=== PATIENT | female | born 1975 | race Caucasian/White ===

== ENCOUNTER 2018-04-12 11:30 | Observation (INO) | payer OTHER ==
[2018-04-12] MEDS ORDERED: IPRATROPIUM-ALBUTEROL 3 ML NEB INHALATION STA (11:38)
--- NOTE | 2018-04-12 12:18 | ED ---
General Adult HPI - General Chief complaint: Shortness of Breath Stated complaint: SOB Time Seen by Provider: 04/12/18 11:40 Source: patient, RN notes reviewed, old records reviewed Mode of arrival: wheelchair Limitations: no limitations - History of Present Illness Initial comments: This is a 43-year-old female the ER for evaluation of shortness of breath. Exertional shortness of breath which patient always does suffer from. Patient states she takes no medication, does have history of high blood pressure takes no blood pressure medication takes and has not seen a doctor. Patient has no recent travel history no sick contacts. Denies fever cough or congestion currently. - Related Data Home Medications Medication Instructions Recorded Confirmed Ibuprofen [Motrin] 1,600 mg PO Q8HR PRN 04/12/18 04/12/18 guaiFENesin [Mucinex] 1,200 mg PO Q12H PRN 04/12/18 04/12/18 Previous Rx's Medication Instructions Recorded Albuterol Inhaler [Ventolin Hfa 1 - 2 puff INHALATION Q6HR PRN #1 04/14/18 Inhaler] inhaler Budesonide-Formot 160-4.5 Mcg 2 puff INHALATION BID #1 inhaler 04/14/18 [Symbicort 160-4.5 Mcg Inhaler] Lisinopril-Hctz 20-25 mg 1 each PO DAILY #30 tab 04/14/18 [Zestoretic 20-25] Nicotine 21Mg/24Hr Patch [Habitrol] 1 each TRANSDERM DAILY #7 patch 04/14/18 Tiotropium [place] [Spiriva] 1 cap INHALATION DAILY #1 device 04/14/18 amLODIPine [Norvasc] 5 mg PO DAILY #30 tab 04/14/18 predniSONE 10 mg PO DAILY #30 tab 04/14/18 Allergies Allergy/AdvReac Type Severity Reaction Status Date / Time amoxicillin AdvReac Itching Verified 04/12/18 12:20 hydrocodone bitartrate AdvReac Itching Verified 04/12/18 12:20 [From Vicodin] Review of Systems ROS Statement: Those systems with pertinent positive or pertinent negative responses have been documented in the HPI. ROS Other: All systems not noted in ROS Statement are negative. Past Medical History Past Medical History: Fibromyalgia, Hypertension History of Any Multi-Drug Resistant Organisms: None Reported Past Surgical History: Orthopedic Surgery Past Psychological History: Depression Smoking Status: Current every day smoker Past Alcohol Use History: None Reported Past Drug Use History: None Reported - Past Family History Father History Unknown: Yes Mother Family Medical History: Cancer, Diabetes Mellitus Additional Family Medical History / Comment(s): Mother from breast cancer that metastasized to her brain at the age of 73 yrs. General Exam Limitations: no limitations General appearance: alert, anxious, obese Head exam: Present: atraumatic, normocephalic, normal inspection Eye exam: Present: normal appearance, PERRL, EOMI. Absent: scleral icterus, conjunctival injection, periorbital swelling ENT exam: Present: normal exam, mucous membranes moist Neck exam: Present: normal inspection. Absent: tenderness, meningismus, lymphadenopathy Respiratory exam: Present: normal lung sounds bilaterally. Absent: respiratory distress, wheezes, rales, rhonchi, stridor Cardiovascular Exam: Present: regular rate, normal rhythm, normal heart sounds. Absent: systolic murmur, diastolic murmur, rubs, gallop, clicks GI/Abdominal exam: Present: soft, normal bowel sounds. Absent: distended, tenderness, guarding, rebound, rigid Extremities exam: Present: normal inspection, full ROM, normal capillary refill. Absent: tenderness, pedal edema, joint swelling, calf tenderness Back exam: Present: normal inspection Neurological exam: Present: alert, oriented X3, CN II-XII intact Psychiatric exam: Present: normal affect, normal mood Skin exam: Present: warm, dry, intact, normal color. Absent: rash Course Vital Signs 04/12/18 04/12/18 04/12/18 11:32 12:01 12:10 Temperature 98.1 F Pulse Rate 112 H 102 H 100 Respiratory 26 H Rate Blood Pressure 210/97 O2 Sat by Pulse 93 L Oximetry 04/12/18 04/12/18 04/12/18 12:38 12:50 13:13 Temperature Pulse Rate 102 H 102 H 98 Respiratory 20 20 20 Rate Blood Pressure 207/99 210/95 207/97 O2 Sat by Pulse 94 L 91 L 98 Oximetry 04/12/18 04/12/18 04/12/18 13:24 13:52 14:35 Temperature Pulse Rate 103 H 97 86 Respiratory 20 18 18 Rate Blood Pressure 201/87 191/84 193/88 O2 Sat by Pulse 91 L 92 L 98 Oximetry 04/12/18 17:04 Temperature Pulse Rate 88 Respiratory 20 Rate Blood Pressure 193/102 O2 Sat by Pulse 96 Oximetry EKG Findings - EKG Comments: EKG Findings:: EKG shows sinus tachycardia rate of 107, VA 164, QRS 90, QTc 472 Medical Decision Making - Medical Decision Making 43 female the ER with shortness of breath, positive CHF significant hypertension with hypertensive urgency. Patient be admitted for evaluation, blood pressure control and diuresis - Lab Data Result diagrams: 04/13/18 06:28 04/13/18 19:00 Lab Results 04/12/18 04/12/18 04/12/18 Range/Units 12:10 12:10 12:10 WBC 9.1 (3.8-10.6) k/uL RBC 4.93 (3.80-5.40) m/uL Hgb 12.6 (11.4-16.0) gm/dL Hct 40.7 (34.0-46.0) % MCV 82.6 (80.0-100.0) fL MCH 25.5 (25.0-35.0) pg MCHC 30.9 L (31.0-37.0) g/dL RDW 17.7 H (11.5-15.5) % Plt Count 314 (150-450) k/uL Neutrophils % 76 % Lymphocytes % 16 % Monocytes % 3 % Eosinophils % 4 % Basophils % 0 % Neutrophils # 6.9 (1.3-7.7) k/uL Lymphocytes # 1.5 (1.0-4.8) k/uL Monocytes # 0.3 (0-1.0) k/uL Eosinophils # 0.3 (0-0.7) k/uL Basophils # 0.0 (0-0.2) k/uL Hypochromasia Moderate Anisocytosis Slight PT (9.0-12.0) sec INR (<1.2) APTT (22.0-30.0) sec Sodium 142 (137-145) mmol/L Potassium 4.1 (3.5-5.1) mmol/L Chloride 110 H (98-107) mmol/L Carbon Dioxide 23 (22-30) mmol/L Anion Gap 9 mmol/L BUN 15 (7-17) mg/dL Creatinine 0.58 (0.52-1.04) mg/dL Est GFR (CKD-EPI)AfAm >90 (>60 ml/min/1.73 sqM) Est GFR (CKD-EPI)NonAf >90 (>60 ml/min/1.73 sqM) Glucose 160 H (74-99) mg/dL Calcium 8.8 (8.4-10.2) mg/dL Magnesium 2.1 (1.6-2.3) mg/dL Total Bilirubin 0.4 (0.2-1.3) mg/dL AST 32 (14-36) U/L ALT 21 (9-52) U/L Alkaline Phosphatase 105 (38-126) U/L Total Creatine Kinase 93 (30-135) U/L CK-MB (CK-2) 0.9 (0.0-2.4) ng/mL CK-MB (CK-2) Rel Index 1.0 Troponin I 0.020 (0.000-0.034) ng/mL NT-Pro-B Natriuret Pep pg/mL Total Protein 7.5 (6.3-8.2) g/dL Albumin 3.5 (3.5-5.0) g/dL 04/12/18 04/12/18 Range/Units 12:10 12:10 WBC (3.8-10.6) k/uL RBC (3.80-5.40) m/uL Hgb (11.4-16.0) gm/dL Hct (34.0-46.0) % MCV (80.0-100.0) fL MCH (25.0-35.0) pg MCHC (31.0-37.0) g/dL RDW (11.5-15.5) % Plt Count (150-450) k/uL Neutrophils % % Lymphocytes % % Monocytes % % Eosinophils % % Basophils % % Neutrophils # (1.3-7.7) k/uL Lymphocytes # (1.0-4.8) k/uL Monocytes # (0-1.0) k/uL Eosinophils # (0-0.7) k/uL Basophils # (0-0.2) k/uL Hypochromasia Anisocytosis PT 10.2 (9.0-12.0) sec INR 1.0 (<1.2) APTT 23.7 (22.0-30.0) sec Sodium (137-145) mmol/L Potassium (3.5-5.1) mmol/L Chloride (98-107) mmol/L Carbon Dioxide (22-30) mmol/L Anion Gap mmol/L BUN (7-17) mg/dL Creatinine (0.52-1.04) mg/dL Est GFR (CKD-EPI)AfAm (>60 ml/min/1.73 sqM) Est GFR (CKD-EPI)NonAf (>60 ml/min/1.73 sqM) Glucose (74-99) mg/dL Calcium (8.4-10.2) mg/dL Magnesium (1.6-2.3) mg/dL Total Bilirubin (0.2-1.3) mg/dL AST (14-36) U/L ALT (9-52) U/L Alkaline Phosphatase (38-126) U/L Total Creatine Kinase (30-135) U/L CK-MB (CK-2) (0.0-2.4) ng/mL CK-MB (CK-2) Rel Index Troponin I (0.000-0.034) ng/mL NT-Pro-B Natriuret Pep 348 pg/mL Total Protein (6.3-8.2) g/dL Albumin (3.5-5.0) g/dL - Radiology Data Radiology results: report reviewed (Chest x-ray is positive for CHF), image reviewed Disposition Clinical Impression: Hypertension, Congestive heart failure, Acute pulmonary edema, Hypertensive emergency Disposition: ADMITTED IP TO THIS HOSP Condition: Stable Is patient prescribed a controlled substance at d/c from ED?: No
--- NOTE | 2018-04-12 12:38 | XR ---
EXAMINATION TYPE: XR chest 1V portable DATE OF EXAM: 04/12/2018 COMPARISON: NONE HISTORY: Shortness of breath TECHNIQUE: Single frontal view of the chest is obtained. FINDINGS: There is a diffuse interstitial pattern. No pneumothorax or pleural effusion. No consolida tion. Heart size within normal limits. IMPRESSION: Diffuse interstitial pattern correlate for pneumonitis or venous congestion.
[2018-04-12] MEDS: ENALAPRILAT 1.25 MG/ML 1 ML VIAL IVP STA ×2 (12:39→13:24)
[2018-04-12 12:49] LABS: Anisocytosis Slight; Basophils % (A) 0 %; Eosinophils # (A) 0.3 k/uL (0-0.7); Eosinophils % (A) 4 %; HCT 40.7 % (34.0-46.0); HGB 12.6 gm/dL (11.4-16.0); Hypochromasia Moderate; Lymphocytes # (A) 1.5 k/uL (1.0-4.8); Lymphocytes % (A) 16 %; MCH 25.5 pg (25.0-35.0); MCHC 30.9 g/dL (31.0-37.0); MCV 82.6 fL (80.0-100.0); Mean Platelet Volume 6.4; Monocytes # (A) 0.3 k/uL (0-1.0); Monocytes % (A) 3 %; Neutrophils # (A) 6.9 k/uL (1.3-7.7); Neutrophils % (A) 76 %; Platelet Count 314 k/uL (150-450); RBC 4.93 m/uL (3.80-5.40); RDW 17.7 % (11.5-15.5); WBC 9.1 k/uL (3.8-10.6)
[2018-04-12 12:59] LABS: ALT 21 U/L (9-52); AST 32 U/L (14-36); Albumin 3.5 g/dL (3.5-5.0); Alkaline Phosphatase 105 U/L (38-126); Anion Gap 9 mmol/L; Blood Urea Nitrogen 15 mg/dL (7-17); Calcium 8.8 mg/dL (8.4-10.2); Carbon Dioxide 23 mmol/L (22-30); Chloride 110 mmol/L (98-107); Glucose 160 mg/dL (74-99); Magnesium 2.1 mg/dL (1.6-2.3); Potassium 4.1 mmol/L (3.5-5.1); Sodium 142 mmol/L (137-145); Total Bilirubin 0.4 mg/dL (0.2-1.3); Total Protein 7.5 g/dL (6.3-8.2)
[2018-04-12 13:05] LABS: Partial Thromboplastin Time 23.7 sec (22.0-30.0); Prothrombin Time 10.2 sec (9.0-12.0)
[2018-04-12 13:23] LABS: Creatine Kinase MB 0.9 ng/mL (0.0-2.4); Troponin I 0.02 ng/mL (0.000-0.034)
[2018-04-12] MEDS: IPRATROPIUM-ALBUTEROL 3 ML NEB INHALATION SCH ×2 (17:22→20:25)
[2018-04-12] MEDS: FUROSEMIDE 10 MG/ML 4 ML VIAL IV SCH ×2 (17:48→22:06)
[2018-04-12] MEDS: ENALAPRILAT 1.25 MG/ML 1 ML VIAL IVP SCH (18:42)
--- NOTE | 2018-04-12 18:49 | ECHOF ---
Referral Reason:Heart Failure MEASUREMENTS -------- HEIGHT: 170.2 cm WEIGHT: 163.3 kg BP: 193/88 RVIDd: 3.7 cm (< 3.3) IVSd: 1.6 cm (0.6 - 1.1) LVIDd: 5.5 cm (3.9 - 5.3) LVPWd: 1.4 cm (0.6 - 1.1) IVSs: 1.8 cm LVIDs: 3.6 cm LVPWs: 1.7 cm LA Diam: 4.5 cm (2.7 - 3.8) Ao Diam: 3.1 cm (2.0 - 3.7) AV Cusp: 1.1 cm (1.5 - 2.6) LA Diam: 4.2 cm (2.7 - 3.8) RAP: 5.00 mmHg RVSP: 13.91 mmHg FINDINGS -------- Sinus rhythm. This was a technically difficult study with suboptimal views. The left ventricular size is normal. There is moderate concentric left ventricular hypertrophy. O verall left ventricular systolic function is normal with, an EF between 55 - 60 %. The right ventricle is normal in size and function. The left atrium is mildly dilated. The right atrium was not well visualized. 5 ml of Lumason was utilized for enhancement of images. The aortic valve was not well visualized. The mitral valve was not well visualized. The tricuspid valve was not well visualized. Trace tricuspid regurgitation present. Right ventric ular systolic pressure is normal at < 35 mmHg. There is no evidence of pulmonary hypertension. The pulmonic valve was not well visualized. The aortic root size is normal. Normal inferior vena cava with normal inspiratory collapse consistent with estimated right atrial pre ssure of 5 mmHg. There is no pericardial effusion. CONCLUSIONS -------- 1. Sinus rhythm. 2. This was a technically difficult study with suboptimal views. 3. The left ventricular size is normal. 4. There is moderate concentric left ventricular hypertrophy. 5. Overall left ventricular systolic function is normal with, an EF between 55 - 60 %. 6. The left atrium is mildly dilated. 7. The right atrium was not well visualized. 8. 5 ml of Lumason was utilized for enhancement of images. 9. The aortic valve was not well visualized. 10. The mitral valve was not well visualized. 11. The tricuspid valve was not well visualized. 12. Trace tricuspid regurgitation present. 13. Right ventricular systolic pressure is normal at < 35 mmHg. 14. There is no evidence of pulmonary hypertension. 15. The pulmonic valve was not well visualized. 16. The aortic root size is normal. 17. There is no pericardial effusion. [employer] INSTRUCTOR: Rober Piedra RDCS
[2018-04-12] MEDS ORDERED: hydrALAZINE HCL 20 MG/ML 1 ML VIAL IVP PRN (19:26)
[2018-04-12] MEDS ORDERED: IPRATROPIUM-ALBUTEROL 3 ML NEB INHALATION PRN (20:41)
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
[2018-04-12] MEDS: predniSONE 20 MG TAB PO SCH (22:06)
[2018-04-12] MEDS: amLODIPine 10 MG TAB PO SCH (22:06)
[2018-04-13] MEDS: ENALAPRILAT 1.25 MG/ML 1 ML VIAL IVP SCH ×2 (00:07→06:01)
[2018-04-13] MEDS: ACETAMINOPHEN TAB 325 MG TAB PO PRN ×2 (06:53→20:56)
[2018-04-13] MEDS: IPRATROPIUM-ALBUTEROL 3 ML NEB INHALATION SCH ×4 (07:00→19:36)
[2018-04-13 07:17] LABS: Anisocytosis Slight; Basophils % (A) 0 %; Eosinophils # (A) 0.1 k/uL (0-0.7); Eosinophils % (A) 1 %; HGB 12.7 gm/dL (11.4-16.0); Hypochromasia Marked; Lymphocytes # (A) 1.6 k/uL (1.0-4.8); Lymphocytes % (A) 14 %; MCH 25.3 pg (25.0-35.0); MCHC 30.2 g/dL (31.0-37.0); MCV 83.9 fL (80.0-100.0); Mean Platelet Volume 6.7; Monocytes # (A) 0.3 k/uL (0-1.0); Monocytes % (A) 3 %; Neutrophils # (A) 9.9 k/uL (1.3-7.7); Neutrophils % (A) 82 %; Platelet Count 403 k/uL (150-450); RBC 5.01 m/uL (3.80-5.40); RDW 17.5 % (11.5-15.5)
[2018-04-13 07:28] LABS: Anion Gap 12 mmol/L; Blood Urea Nitrogen 15 mg/dL (7-17); Calcium 9.2 mg/dL (8.4-10.2); Carbon Dioxide 23 mmol/L (22-30); Chloride 107 mmol/L (98-107); Cholesterol 146 mg/dL (<200); Glucose 125 mg/dL (74-99); HDL Cholesterol 33 mg/dL (40-60); LDL Cholesterol,Calculated 104 mg/dL (0-99); Potassium 4.5 mmol/L (3.5-5.1); Sodium 142 mmol/L (137-145); Triglycerides 46 mg/dL (<150)
[2018-04-13] MEDS: FAMOTIDINE 20 MG TAB PO SCH ×2 (10:23→21:49)
[2018-04-13] MEDS: predniSONE 20 MG TAB PO SCH (10:23)
[2018-04-13] MEDS: ENOXAPARIN 40 MG/0.4 ML SYRINGE SQ SCH (10:23)
[2018-04-13] MEDS: amLODIPine 10 MG TAB PO SCH (10:23)
[2018-04-13] MEDS: FUROSEMIDE 10 MG/ML 4 ML VIAL IV SCH ×3 (10:24→23:58)
[2018-04-13 10:48] VITALS: BMI 56.0
[2018-04-13] MEDS: LISINOPRIL-HCTZ 20-25 MG 1 EACH TAB PO SCH (11:56)
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
[2018-04-14] MEDS: IPRATROPIUM-ALBUTEROL 3 ML NEB INHALATION SCH ×2 (06:54→11:13)
[2018-04-14] MEDS: FUROSEMIDE 10 MG/ML 4 ML VIAL IV SCH (08:40)
[2018-04-14] MEDS: ENOXAPARIN 40 MG/0.4 ML SYRINGE SQ SCH (08:40)
[2018-04-14] MEDS: predniSONE 20 MG TAB PO SCH (08:41)
[2018-04-14] MEDS: amLODIPine 10 MG TAB PO SCH (08:41)
[2018-04-14] MEDS: FAMOTIDINE 20 MG TAB PO SCH (08:41)
[2018-04-14] MEDS: LISINOPRIL-HCTZ 20-25 MG 1 EACH TAB PO SCH (08:41)
[2018-04-14 11:58] VITALS: BP 137/78; PULSE 96; RESP 18; TEMP 97.9
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
--- NOTE | 2018-04-14 13:37 | P.PN ---
Subjective Progress Note Date: 04/14/18 This is a 43-year-old female with known history of hypertension, not currently on any medications, history of osteoarthritis, fibromyalgia, obesity, nicotine dependence, who presented to the hospital with symptoms of shortness of breath with bilateral leg swelling. Denies any chest discomfort, no palpitations. Chest x-ray shows diffuse interstitial pattern, correlate for pneumonitis or venous congestion. An echocardiogram with Doppler study was performed which showed a normal left ventricular systolic function. Blood pressure on admission here 210/97, heart rate 108, 93% on room air, temperature 98.1. White blood cell count 9.1 on admission, 12.0 this morning. Platelet count 314 on arrival, 403 this afternoon. Sodium 142, potassium 4.5, BUN 15, creatinine 0.6. Troponin 0.02, 0.01, 0.02. BNP 348. Patient was initiated on IV Lasix in the emergency room, we will discontinue that today. She is on Norvasc 10 mg daily, and was started on Vasotec 1.25 IV which has been discontinued. Dr. Mauricio started the patient on Lisinopril hydrochlorothiazide 20/25 daily. Her blood pressure this morning is 154/88, heart rate in the 90s, 94% on room air. 04/14/2018 Patient seen and examined this morning, blood pressure significantly improved, 136/78 today with a heart rate of 90, 93% on room air Objective - Vital Signs Vital signs: Vital Signs Temp 97.9 F 04/14/18 11:57 Pulse 96 04/14/18 11:57 Resp 18 04/14/18 11:57 BP 137/78 04/14/18 11:57 Pulse Ox 93 L 04/14/18 11:57 Intake & Output 04/13/18 04/14/18 04/14/18 18:59 06:59 18:59 Intake Total 358 10 118 Balance 358 10 118 Weight 162.2 kg 161.8 kg Intake: IV 10 Invasive Line 2 10 Oral 358 118 Other: Voiding Method Toilet # Voids 1 1 3 - Exam PHYSICAL EXAMINATION: GENERAL: 43-year-old female in no acute distress at the time of my examination HEENT: Head is atraumatic, normocephalic. Pupils equal, round. Sclera anicteric. Conjunctiva are clear. Mucous membranes of the mouth are moist. Neck is supple. There is no elevated jugular venous pressure. No carotid bruit is heard. HEART EXAMINATION: Heart S1, S2 normal. No murmur or gallop heard. CHEST EXAMINATION: Lungs are clear with mild diminished air entry to the bases. ABDOMEN: Soft, obese, nontender. Bowel sounds are heard. No organomegaly noted. EXTREMITIES: 2+ peripheral pulses with no evidence of peripheral edema and no calf tenderness noted. NEUROLOGIC patient is awake, alert and oriented X3. - Labs CBC & Chem 7: 04/13/18 06:28 04/13/18 19:00 Assessment and Plan Plan: Assessment and plan #1 accelerated hypertension #2 obesity #3 symptoms of shortness of breath with associated peripheral edema, no evidence of congestive heart failure, BNP level 348 on admission. #4 nicotine dependence Plan Echocardiogram with Doppler study was performed which revealed an ejection fraction of 55-60%. No evidence of pulmonary hypertension. From cardiology's perspective we will continue patient on current medications. DNP note has been reviewed, I agree with a documented findings and plan of care. Patient was seen and examined.
--- NOTE | 2018-04-20 16:54 | CDI ---
Outpatient Documentation Clarification Form Date: 04-20-18 CDS/Applied Technologist Name: Vanita Olivier Phone: If any questions, call Tina Rubio Ict Systems Test Engineer at [phone] Patient Name: Ute Anaya Admit Date: 04-12-18 Discharge Date: 04-14-18 ATTENTION: The [facility] Coding Staff appreciate your assistance in clarifying documentation. Please respond to the clarification below the line at the bottom and electronically sign. The [facility] Coding staff will review the response and follow-up if needed. Please note: Queries are made part of the Legal Health Record. If you have any questions, please contact the Ict Systems Test Engineer. Dear Dr. Page, Medical decision making in the states "positive CHF ", pt started on IV Lasix , pt with + leg swelling, shortness of breath, etc. Progress notes state no evidence of CHF. Please confirm diagnosis of Congestive Heart Failure if ruled in for this patient below the line- "CHF ruled in". If Congestive Heart Failure is ruled out, please specify below the line "CHF ruled out". no chf Thank you for your kind consideration. Vanita Olivier [facility]
== END 2018-04-14 12:41 | disposition home or self-care (01) ==
LOC: EC 11:30 → 6SEL 15:11
PROVIDERS: ADMIT Hospitalist; ATTEND Hospitalist
DX: I16.1 Hypertensive emergency (principal); E66.01 Morbid (severe) obesity due to excess calories; Z68.43 Body mass index [BMI] 50.0-59.9, adult; J44.1 Chronic obstructive pulmonary disease with (acute) exacerbation; I11.9 Hypertensive heart disease without heart failure; M79.7 Fibromyalgia; M17.0 Bilateral primary osteoarthritis of knee; G43.909 Migraine, unspecified, not intractable, without status migrainosus; M54.5 Low back pain; Z87.828 Personal history of other (healed) physical injury and trauma; Z88.5 Allergy status to narcotic agent; Z88.0 Allergy status to penicillin; F32.9 Major depressive disorder, single episode, unspecified; Z83.3 Family history of diabetes mellitus; Z80.3 Family history of malignant neoplasm of breast; Z80.8 Family history of malignant neoplasm of other organs or systems; Z87.09 Personal history of other diseases of the respiratory system; Z87.01 Personal history of pneumonia (recurrent); F17.210 Nicotine dependence, cigarettes, uncomplicated; Z91.14 Patient's other noncompliance with medication regimen; Z91.19 Patient's noncompliance with other medical treatment and regimen
CPT/HCPCS: 99285 ×2; 96374 ×2; 96376 ×5; 96375 ×3; 96373 ×2; 36415; 94640 ×6; 94760 ×2; 93005; 85379; 83880; 80061; 80053; 80048; 82550; 82553; 83735; 84132; 84484 ×2; 85025 ×2; 85610; 85730; 71045; G0378 ×3; C8929; J0360; J1940 ×3; J1650 ×2; J7512 ×3; Q9950; 93306

== ENCOUNTER → 2018-08-03 | Outpatient (CLI) | payer OTHER ==
--- NOTE | 2018-08-03 16:24 | XR ---
EXAMINATION TYPE: XR knee limited bilateral DATE OF EXAM: 08/03/2018 CLINICAL HISTORY: Bilateral knee pain for weeks TECHNIQUE: 2 views of the bilateral knees were obtained. COMPARISON: 07/08/2012 FINDINGS: No acute fracture or dislocation is seen of either knee. There is medial compartment joint space narr owing and tricompartmental marginal osteophytes of both knees, progressed from the prior of 2. No suprapatellar joint effusion. No focal soft tissue swelling. No suspicious osseous lesion. IMPRESSION: There is no acute fracture or dislocation in either knee. Moderate tricompartmental arth rosis progressed from the prior of 07/08/2012.
== END ==
LOC: RADXRMAIN 15:15
PROVIDERS: ATTEND Family Medicine
DX: M25.561 Pain in right knee (principal); M25.562 Pain in left knee

== ENCOUNTER → 2019-11-15 | Outpatient (CLI) | payer OTHER ==
--- NOTE | 2019-11-15 12:51 | US ---
EXAMINATION TYPE: US abdomen complete DATE OF EXAM: 11/15/2019 COMPARISON: NONE CLINICAL HISTORY: R10.11 R10.12 R94.5 R68.89. Patient is morbidly obese. Pain and nausea. Difficult a nd limited exam due to patient body habitus EXAM MEASUREMENTS: Liver Length: 23.3 cm Gallbladder Wall: 0.2 cm CBD: 0.5 cm Spleen: 12.6 cm Right Kidney: 11.0 x 4.8 x 4.1 cm Left Kidney: Not visualized on this exam due to overlying bowel gas Pancreas: Tail obscured by overlying bowel gas, visualized portions wnl Liver: Enlarged, attenuating, coarse echotexture Gallbladder: Hydropic, multiple tiny shadowing echogenic foci Evidence for sonographic Mann's sign: No CBD: wnl as visualized Spleen: wnl as visualized Right Kidney: No hydronephrosis or masses seen Left Kidney: Not visualized on this exam due to overlying bowel gas Upper IVC: wnl as visualized. limited visualization Abd Aorta: wnl as visualized IMPRESSION: 1. Mild fatty infiltration of the liver. Hepatomegaly is present.
== END | disposition home or self-care (01) ==
LOC: RADUSWWP 11:11
PROVIDERS: ATTEND Family Medicine
DX: K76.0 Fatty (change of) liver, not elsewhere classified (principal); R16.0 Hepatomegaly, not elsewhere classified; R10.12 Left upper quadrant pain; R94.5 Abnormal results of liver function studies; R68.89 Other general symptoms and signs
CPT/HCPCS: 76700

== ENCOUNTER → 2021-05-21 | Outpatient (CLI) | payer OTHER ==
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
== END ==
LOC: SLEEP 14:02
PROVIDERS: ATTEND Internal Medicine Critical Care Medicine
DX: G47.10 Hypersomnia, unspecified (principal); E66.01 Morbid (severe) obesity due to excess calories; E11.40 Type 2 diabetes mellitus with diabetic neuropathy, unspecified; I50.9 Heart failure, unspecified; I11.0 Hypertensive heart disease with heart failure; M79.7 Fibromyalgia; L50.9 Urticaria, unspecified; F17.200 Nicotine dependence, unspecified, uncomplicated; Z68.43 Body mass index [BMI] 50.0-59.9, adult; Z88.1 Allergy status to other antibiotic agents; Z88.5 Allergy status to narcotic agent
CPT/HCPCS: 99211

== ENCOUNTER 2021-10-06 16:30 | Emergency (ER) | payer OTHER ==
[2021-10-06 16:35] VITALS: TEMP 98
[2021-10-06] MEDS ORDERED: diphenhydrAMINE 50 MG/ML 1 ML VIAL IVP STA (17:54)
[2021-10-06] MEDS ORDERED: SODIUM CHLORIDE 0.9% 1,000 ML IV STA (17:54)
[2021-10-06] MEDS ORDERED: ONDANSETRON 4 MG/2 ML VIAL IVP STA (17:54)
[2021-10-06] MEDS ORDERED: MORPHINE SULFATE 4 MG/ML SYRINGE IV STA (17:54)
[2021-10-06 18:18] LABS: Anisocytosis Slight; Basophils # (A) 0.1 k/uL (0-0.2); Basophils % (A) 1 %; Eosinophils # (A) 0.2 k/uL (0-0.7); Eosinophils % (A) 2 %; HCT 44.1 % (34.0-46.0); HGB 13.7 gm/dL (11.4-16.0); Lymphocytes # (A) 1.2 k/uL (1.0-4.8); Lymphocytes % (A) 13 %; MCH 26.7 pg (25.0-35.0); MCV 86.1 fL (80.0-100.0); Mean Platelet Volume 7.5; Monocytes # (A) 0.4 k/uL (0-1.0); Monocytes % (A) 5 %; Neutrophils # (A) 7.5 k/uL (1.3-7.7); Neutrophils % (A) 79 %; Platelet Count 264 k/uL (150-450); RBC 5.13 m/uL (3.80-5.40); RDW 16.4 % (11.5-15.5); WBC 9.5 k/uL (3.8-10.6)
[2021-10-06 18:28] LABS: Partial Thromboplastin Time 25.5 sec (22.0-30.0); Prothrombin Time 11.1 sec (9.0-12.0)
[2021-10-06 18:54] LABS: ALT 43 U/L (4-34); African American GFR (CKD) >90 (>60 ml/min/1.73 sqM); Albumin 3.7 g/dL (3.5-5.0); Amylase 57 U/L (30-110); Anion Gap 10 mmol/L; Blood Urea Nitrogen 14 mg/dL (7-17); Calcium 8.5 mg/dL (8.4-10.2); Carbon Dioxide 18 mmol/L (22-30); Chloride 104 mmol/L (98-107); Glucose 323 mg/dL (74-99); Lipase 179 U/L (23-300); Non-African American GFR(CKD) >90 (>60 ml/min/1.73 sqM); Sodium 132 mmol/L (137-145); Total Bilirubin 0.6 mg/dL (0.2-1.3); Total Protein 7.6 g/dL (6.3-8.2)
[2021-10-06 18:59] LABS: HCG,Qualitative Serum Not Detected
[2021-10-06 19:00] LABS: AST 45 U/L (14-36); Alkaline Phosphatase 106 U/L (38-126); Potassium 4.8 mmol/L (3.5-5.1)
[2021-10-06 19:25] VITALS: BP 135/81; PULSE 88; RESP 18
--- NOTE | 2021-10-06 19:43 | CT ---
EXAMINATION TYPE: CT abdomen pelvis w con CT DLP: 3749.4 mGycm, Automated exposure control for dose reduction was used. DATE OF EXAM: 10/06/2021 7:31 PM COMPARISON: None. CLINICAL INDICATION:Female, 46 years old with history of abdominal pain, acute, nonlocalized; Mid abd ominal pain and diarrhea. TECHNIQUE: Standard CT of the abdomen and pelvis following the administration of 100 cc of Isovue 3 00 IV contrast material. Coronal and sagittal reformats were performed. FINDINGS: LOWER CHEST: Unremarkable ABDOMEN LIVER: Unremarkable GALLBLADDER AND BILE DUCTS: Unremarkable. PANCREAS: Unremarkable. SPLEEN: Unremarkable. ADRENAL GLANDS: Unremarkable. KIDNEYS AND URETERS: No evidence of hydronephrosis or renal calculus. The ureters are unremarkable. PELVIS BLADDER: Unremarkable REPRODUCTIVE: Unremarkable. ABDOMEN & PELVIS STOMACH AND BOWEL: Appendix is visualized and within normal limits. No evidence of bowel obstruction. PERITONEUM: No evidence of pneumoperitoneum or free fluid. VASCULATURE: No evidence of aortic aneurysm. Mild atherosclerosis of the visualized arterial vasculat ure. MUSCULOSKELETAL: No acute osseous abnormalities LYMPH NODES: No gross evidence for lymphadenopathy. SOFT TISSUE/ABDOMINAL WALL: Large fat-containing umbilical hernia measuring 27 x 36 mm at the neck. IMPRESSION: 1. No evidence for acute intra-abdominal process. 2. Fat-containing umbilical hernia.
[2021-10-06 20:12] LABS: Appearance,Urine Clear (Clear); Bacteria,Urine Occasional /hpf; Bilirubin,Urine Negative (Negative); Blood,Urine Negative (Negative); Color,Urine Light Yellow; Glucose,Urine (UA) 4+ (Negative); Ketones,Urine Negative (Negative); Leukocyte Esterase,Urine Negative (Negative); Mucus,Urine Rare /hpf; Nitrite,Urine Negative (Negative); PH, Urine 5.5 (5.0-8.0); Protein,Urine 1+ (Negative); RBC,Urine 1 /hpf (0-5); Specific Gravity,Urine 1.021 (1.001-1.035); Squamous Epithelial Cell,Urine 2 /hpf (0-4); Urobilinogen,Urine <2.0 mg/dL (<2.0); WBC,Urine 2 /hpf (0-5)
--- NOTE | 2021-10-06 20:27 | ED ---
General Adult HPI - General Chief complaint: Abdominal Pain Stated complaint: Abd pain Time Seen by Provider: 10/06/21 17:46 Source: patient, RN notes reviewed, old records reviewed Mode of arrival: wheelchair Limitations: no limitations - History of Present Illness Initial comments: Patient is a 46-year-old female who presents emergency Department complaining of nonspecific abdominal pain. She states she chronically has intermittent abdominal pain but states that for the last few days has been more persistent. Describes it as a large band located across her upper abdomen. Describes it as a crampy, achy feeling. States that there are no known palliative or provocative factors. Endorses nausea but no vomiting. Denies diarrhea. Denies constipation. Still passing gas. Last bowel movement was earlier today. Denies any urinary complaints. Denies any chest pain or shortness breath. Has no other acute complaints at this time. Was concerned it was her gallbladder, which she has been told in the past. She presents for further evaluation. Denies any fevers, chills, sick contacts. - Related Data Home Medications Medication Instructions Recorded Confirmed DULoxetine HCL [Cymbalta] 30 mg PO DAILY 10/06/21 10/06/21 Dulaglutide [Trulicity] 0.75 mg SQ FR 10/06/21 10/06/21 Insulin Glargine,Hum.rec.anlog 30 unit SQ DAILY 10/06/21 10/06/21 [Lantus Solostar Pen] Simvastatin [Zocor] 20 mg PO HS 10/06/21 10/06/21 amLODIPine [Norvasc] 5 mg PO DAILY 10/06/21 10/06/21 hydroCHLOROthiazide [Hydrodiuril] 25 mg PO DAILY 10/06/21 10/06/21 lisinopriL [Zestril] 10 mg PO DAILY 10/06/21 10/06/21 metFORMIN HCL [Glucophage] 1,000 mg PO BID 10/06/21 10/06/21 Previous Rx's Medication Instructions Recorded Docusate [Colace] 100 mg PO DAILY 14 Days #14 capsule 10/06/21 Famotidine [Pepcid] 20 mg PO DAILY 7 Days #7 tablet 10/06/21 Mag Hydrox/Al Hydrox/Simeth 30 ml PO BID PRN #300 ml 10/06/21 [Maalox] Ondansetron [Zofran ODT] 4 mg PO Q8HR PRN 3 Days #9 tab 10/06/21 Allergies Allergy/AdvReac Type Severity Reaction Status Date / Time amoxicillin AdvReac Itching Verified 10/06/21 16:35 clavulanic acid AdvReac welts Verified 10/06/21 19:04 [From Augmentin] hydrocodone bitartrate AdvReac Itching Verified 10/06/21 16:35 [From Vicodin] Review of Systems ROS Statement: Those systems with pertinent positive or pertinent negative responses have been documented in the HPI. Review of Systems: CONST: Denies fever EYES: Denies blurry vision ENT: Denies nasal congestion C/V: Denies Chest pain RESP: Denies shortness of breath GI: Endorses abdominal pain : Denies dysuria SKIN: Denies rash. MSK: Denies joint pain. NEURO: Denies headache ROS Other: All systems not noted in ROS Statement are negative. Past Medical History Past Medical History: Heart Failure, COPD, Fibromyalgia, Hypertension, Musculoskeletal Disorder, Neurologic Disorder, Skin Disorder Additional Past Medical History / Comment(s): migraines History of Any Multi-Drug Resistant Organisms: None Reported Past Surgical History: Orthopedic Surgery Additional Past Surgical History / Comment(s): Bilateral knees arthroscopies, R achilles tendon injury with surgical repair. Additional Past Anesthesia/Blood Transfusion Reaction / Comment(s): Pt states sometimes she is slow to wake. Pt has never received blood. Past Psychological History: Depression Smoking Status: Vaper Past Alcohol Use History: None Reported Past Drug Use History: None Reported - Past Family History Father History Unknown: Yes Mother Family Medical History: Cancer, Diabetes Mellitus Additional Family Medical History / Comment(s): Mother from breast cancer that metastasized to her brain at the age of 73 yrs. General Exam - General Exam Comments Initial Comments: General: Appears in no acute distress. HEAD: Normal with no signs of head trauma. EYES: PERRLA, EOMI, conjunctiva normal, no discharge. ENT: Hearing grossly intact, normal oropharynx. RESPIRATORY: Clear breath sounds bilaterally. No wheezes, rales, or rhonchi. C/V: Regular rate and rhythm. S1 and S2 auscultated, no edema, peripheral pulses 2+ and intact throughout ABD: Abdomen is soft, nondistended. Tender to palpation across the right upper and left upper quadrants as well as the epigastric region. No guarding. No rebound tenderness. No peritoneal signs. No CVA tenderness to percussion. Patient does have a known umbilical hernia that is easily reducible with no skin changes. There is a small sore located over the top of at that shows no signs of infections at this time. EXT: Normal range of motion, no obvious deformity SKIN: No rashes or lesions observed on exposed skin. NEURO: Alert and oriented 4. Limitations: no limitations Course Vital Signs 10/06/21 10/06/21 16:33 19:23 Temperature 98 F Pulse Rate 93 88 Respiratory 16 18 Rate Blood Pressure 134/86 135/81 O2 Sat by Pulse 97 96 Oximetry Medical Decision Making - Medical Decision Making Based on patient's presentation and physical exam, I am concerned for possible intra-abdominal process for the patient. Therefore we will obtain abdominal laboratory studies as well as CT abdomen and pelvis. She is in agreement this plan. She will be symptomatically treated as well while she is here. Screening EKG showed no signs of acute ischemia. Laboratory studies were relatively unremarkable. She is mildly elevated AST and ALT. Sugar is mildly elevated to 323 with a history of diabetes. Remainder labs are unremarkable. CT abdomen and pelvis revealed no acute intra-abdominal process. This shows a fat-containing umbilical hernia. It does appear to be some stool present. On reevaluation come patient states that her pain is resolved. I discussed the results with her and I believe it is safe for her to be discharged home at this time. She was in agreement this plan. She'll follow up with her PCP. I will provide the patient with a prescription for Colace, Maalox, Pepcid, Zofran ODT. I instructed the patient to follow up with their PCP in the next 3 days. I explained that the patient should return to the emergency department if they experience any worsening symptoms. Strict return precautions were discussed with the patient. The patient expressed understanding of these instructions. I answered all questions that the patient had. The patient was discharged home in good condition with their prescriptions and follow up information. - Lab Data Result diagrams: 10/06/21 18:04 10/06/21 18:23 Lab Results 10/06/21 10/06/21 10/06/21 Range/Units 18:04 18: 18:23 WBC 9.5 (3.8-10.6) k/uL RBC 5.13 (3.80-5.40) m/uL Hgb 13.7 (11.4-16.0) gm/dL Hct 44.1 (34.0-46.0) % MCV 86.1 (80.0-100.0) fL MCH 26.7 (25.0-35.0) pg MCHC 31.0 (31.0-37.0) g/dL RDW 16.4 H (11.5-15.5) % Plt Count 264 (150-450) k/uL MPV 7.5 Neutrophils % 79 % Lymphocytes % 13 % Monocytes % 5 % Eosinophils % 2 % Basophils % 1 % Neutrophils # 7.5 (1.3-7.7) k/uL Lymphocytes # 1.2 (1.0-4.8) k/uL Monocytes # 0.4 (0-1.0) k/uL Eosinophils # 0.2 (0-0.7) k/uL Basophils # 0.1 (0-0.2) k/uL Anisocytosis Slight PT 11.1 (9.0-12.0) sec INR 1.0 (<1.2) APTT 25.5 (22.0-30.0) sec Sodium 132 L (137-145) mmol/L Potassium 4.8 (3.5-5.1) mmol/L Chloride 104 (98-107) mmol/L Carbon Dioxide 18 L (22-30) mmol/L Anion Gap 10 mmol/L BUN 14 (7-17) mg/dL Creatinine 0.54 (0.52-1.04) mg/dL Est GFR (CKD-EPI)AfAm >90 (>60 ml/min/1.73 sqM) Est GFR (CKD-EPI)NonAf >90 (>60 ml/min/1.73 sqM) Glucose 323 H (74-99) mg/dL Plasma Lactic Acid Ovi (0.7-2.0) mmol/L Calcium 8.5 (8.4-10.2) mg/dL Total Bilirubin 0.6 (0.2-1.3) mg/dL AST 45 H (14-36) U/L ALT 43 H (4-34) U/L Alkaline Phosphatase 106 (38-126) U/L Total Protein 7.6 (6.3-8.2) g/dL Albumin 3.7 (3.5-5.0) g/dL Amylase 57 (30-110) U/L Lipase 179 (23-300) U/L HCG, Qual Not Detected Urine Color Urine Appearance (Clear) Urine pH (5.0-8.0) Ur Specific [place] (1.001-1.035) Urine Protein (Negative) Urine Glucose (UA) (Negative) Urine Ketones (Negative) Urine Blood (Negative) Urine Nitrite (Negative) Urine Bilirubin (Negative) Urine Urobilinogen (<2.0) mg/dL Ur Leukocyte Esterase (Negative) Urine RBC (0-5) /hpf Urine WBC (0-5) /hpf Ur Squamous Epith Cells (0-4) /hpf Urine Bacteria (None) /hpf Urine Mucus (None) /hpf 10/06/21 10/06/21 Range/Units 18:23 19:30 WBC (3.8-10.6) k/uL RBC (3.80-5.40) m/uL Hgb (11.4-16.0) gm/dL Hct (34.0-46.0) % MCV (80.0-100.0) fL MCH (25.0-35.0) pg MCHC (31.0-37.0) g/dL RDW (11.5-15.5) % Plt Count (150-450) k/uL MPV Neutrophils % % Lymphocytes % % Monocytes % % Eosinophils % % Basophils % % Neutrophils # (1.3-7.7) k/uL Lymphocytes # (1.0-4.8) k/uL Monocytes # (0-1.0) k/uL Eosinophils # (0-0.7) k/uL Basophils # (0-0.2) k/uL Anisocytosis PT (9.0-12.0) sec INR (<1.2) APTT (22.0-30.0) sec Sodium (137-145) mmol/L Potassium (3.5-5.1) mmol/L Chloride (98-107) mmol/L Carbon Dioxide (22-30) mmol/L Anion Gap mmol/L BUN (7-17) mg/dL Creatinine (0.52-1.04) mg/dL Est GFR (CKD-EPI)AfAm (>60 ml/min/1.73 sqM) Est GFR (CKD-EPI)NonAf (>60 ml/min/1.73 sqM) Glucose (74-99) mg/dL Plasma Lactic Acid Ovi 1.7 (0.7-2.0) mmol/L Calcium (8.4-10.2) mg/dL Total Bilirubin (0.2-1.3) mg/dL AST (14-36) U/L ALT (4-34) U/L Alkaline Phosphatase (38-126) U/L Total Protein (6.3-8.2) g/dL Albumin (3.5-5.0) g/dL Amylase (30-110) U/L Lipase (23-300) U/L HCG, Qual Urine Color Light Yellow Urine Appearance Clear (Clear) Urine pH 5.5 (5.0-8.0) Ur Specific [place] 1.021 (1.001-1.035) Urine Protein 1+ H (Negative) Urine Glucose (UA) 4+ H (Negative) Urine Ketones Negative (Negative) Urine Blood Negative (Negative) Urine Nitrite Negative (Negative) Urine Bilirubin Negative (Negative) Urine Urobilinogen <2.0 (<2.0) mg/dL Ur Leukocyte Esterase Negative (Negative) Urine RBC 1 (0-5) /hpf Urine WBC 2 (0-5) /hpf Ur Squamous Epith Cells 2 (0-4) /hpf Urine Bacteria Occasional H (None) /hpf Urine Mucus Rare H (None) /hpf - EKG Data -: EKG Interpreted by Me EKG Comments: 12-lead Electrocardiogram Interpretation Note EKG was reviewed and interpreted by myself. 12-lead ECG performed at 1836 is interpreted by me as revealing normal sinus rhythm at a rate of 87 beats per mi nute. [place] is normal. MN interval is 172 ms, QRS durations 101 ms, QTc is 418 ms.. There were no ST or T wave abnormalities to suggest myocardial ischemia or injury. R wave progression across the precordium was satisfactory. By my interpretation this EKG is non-diagnostic for acute ischemia. Disposition Clinical Impression: Abdominal pain of unknown etiology Disposition: HOME SELF-CARE Condition: Good Instructions (If sedation given, give patient instructions): Abdominal Pain (ED) Prescriptions: Docusate [Colace] 100 mg PO DAILY 14 Days #14 capsule Mag Hydrox/Al Hydrox/Simeth [Maalox] 30 ml PO BID PRN #300 ml PRN Reason: Dyspepsia Famotidine [Pepcid] 20 mg PO DAILY 7 Days #7 tablet Ondansetron [Zofran ODT] 4 mg PO Q8HR PRN 3 Days #9 tab PRN Reason: Nausea Is patient prescribed a controlled substance at d/c from ED?: No Referrals: Bertram Sepulveda Jr, [Primary Care Provider] - 1-2 days
== END 2021-10-06 20:44 | disposition home or self-care (01) ==
LOC: EC 16:30
DX: R10.11 Right upper quadrant pain (principal); R10.12 Left upper quadrant pain; I11.0 Hypertensive heart disease with heart failure; I50.9 Heart failure, unspecified; J44.9 Chronic obstructive pulmonary disease, unspecified; M79.7 Fibromyalgia; F32.A Depression, unspecified; F17.290 Nicotine dependence, other tobacco product, uncomplicated; Z79.4 Long term (current) use of insulin; Z79.84 Long term (current) use of oral hypoglycemic drugs; Z88.5 Allergy status to narcotic agent; Z96.653 Presence of artificial knee joint, bilateral
CPT/HCPCS: 99284; 96374; 96375 ×2; 96361; 36415; 93005; 80053; 82150; 83605; 83690; 85025; 85610; 85730; 81001; 84703; 74177; J2270; J1200; J2405; Q9967

== ENCOUNTER 2023-03-31 11:52 | Inpatient (IN) | payer OTHER ==
--- NOTE | 2023-03-31 12:01 | ED ---
General Adult HPI - General Source: patient, RN notes reviewed Mode of arrival: ambulatory Limitations: no limitations <Marco Antonio Bolton - Last Filed: 03/31/23 12:00> <Shannon Hillman - Last Filed: 03/31/23 18:51> - General Stated complaint: Abd pain Time Seen by Provider: 03/31/23 12:00 - History of Present Illness Initial comments: 48-year-old female presents emergency department chief complaint severe abdominal pain. Patient states started around 2 AM. Patient states that she's had 0 relief. She hasn't nausea vomiting diarrhea. She states it's in the left side he rates over the right side. She states she does have some pain in her upper abdomen. Patient denies any fevers chills she believes this is related to her gallbladder. (Marco Antonio Bolton) Note reviewed: 48-year-old female with past medical history significant for obesity, hypertension, diabetes mellitus presents to the emergency department with a chief complaint of abdominal pain that started approximately 2 AM. She verbalizes that her pain will start and go from right to left the front side of her stomach. She describes as a hot poker. She reports a long family history of gallbladder problems. She denies any known fevers, chills, dysuria, hematuria. She reports that she did have a greasy BBQ meal yesterday. Last bowel movement was this morning and was diarrhea. She is complaining of accompanying nausea. (Shannon Hillman) - Related Data Home Medications Medication Instructions Recorded Confirmed DULoxetine HCL [Cymbalta] 30 mg PO DAILY 10/06/21 10/06/21 Dulaglutide [Trulicity] 0.75 mg SQ FR 10/06/21 10/06/21 Insulin Glargine,Hum.rec.anlog 30 unit SQ DAILY 10/06/21 10/06/21 [Lantus Solostar Pen] Simvastatin [Zocor] 20 mg PO HS 10/06/21 10/06/21 amLODIPine [Norvasc] 5 mg PO DAILY 10/06/21 10/06/21 hydroCHLOROthiazide [Hydrodiuril] 25 mg PO DAILY 10/06/21 10/06/21 lisinopriL [Zestril] 10 mg PO DAILY 03/20/22 03/20/22 metFORMIN HCL [Glucophage] 1,000 mg PO BID 10/06/21 10/06/21 Previous Rx's Medication Instructions Recorded Docusate [Colace] 100 mg PO DAILY 14 Days #14 capsule 10/06/21 Famotidine [Pepcid] 20 mg PO DAILY 7 Days #7 tablet 10/06/21 Mag Hydrox/Al Hydrox/Simeth 30 ml PO BID PRN #300 ml 10/06/21 [Maalox] Ondansetron [Zofran ODT] 4 mg PO Q8HR PRN 3 Days #9 tab 10/06/21 Allergies Allergy/AdvReac Type Severity Reaction Status Date / Time amoxicillin AdvReac Itching Verified 03/31/23 12:15 clavulanic acid AdvReac welts Verified 03/31/23 12:15 [From Augmentin] hydrocodone bitartrate AdvReac Itching Verified 03/31/23 12:15 [From Vicodin] Review of Systems ROS Other: All systems not noted in ROS Statement are negative. <Marco Antonio Bolton - Last Filed: 03/31/23 12:00> ROS Other: All systems not noted in ROS Statement are negative. <Shannon Hillman - Last Filed: 03/31/23 18:51> ROS Statement: Those systems with pertinent positive or pertinent negative responses have been documented in the HPI. Past Medical History Past Medical History: Heart Failure, COPD, Fibromyalgia, Hypertension, Musculoskeletal Disorder, Neurologic Disorder, Skin Disorder Additional Past Medical History / Comment(s): migraines History of Any Multi-Drug Resistant Organisms: None Reported Past Surgical History: Orthopedic Surgery Additional Past Surgical History / Comment(s): Bilateral knees arthroscopies, R achilles tendon injury with surgical repair. Additional Past Anesthesia/Blood Transfusion Reaction / Comment(s): Pt states sometimes she is slow to wake. Pt has never received blood. Past Psychological History: Depression Smoking Status: Vaper Past Alcohol Use History: None Reported Past Drug Use History: None Reported - Past Family History Father History Unknown: Yes Mother Family Medical History: Cancer, Diabetes Mellitus Additional Family Medical History / Comment(s): Mother from breast cancer that metastasized to her brain at the age of 73 yrs. <Marco Antonio Bolton - Last Filed: 03/31/23 12:00> General Exam <Marco Antonio Bolton - Last Filed: 03/31/23 12:00> <Shannon Hillman - Last Filed: 03/31/23 18:51> - General Exam Comments Initial Comments: Visual Physical Exam Vital signs reviewed General: Well-appearing, nontoxic, no acute distress. Head: Normocephalic, atraumatic Eyes: PERRLA, EOMI ENT: Airway patent Chest: Nonlabored breathing Skin: No visual rash, normal skin tone Neuro: Alert and oriented 3 Musculoskeletal: No gross abnormalities (Marco Antonio Bolton) General: Alert, in no acute distress, is obese Head: atraumatic normocephalic. Eyes PERRL, EOMI intact, mucous membranes moist Respiratory: Lungs clear to auscultation bilaterally Cardiovascular: Heart rate regular rate and rhythm Abdominal: Soft without guarding or rebound, left CVA tenderness, generalized abdominal tenderness Extremities: Normal inspection with full range of motion and normal capillary refill Neuroogic: alert and oriented 3, CN II-XII intact, able to ambulate with steady gait Skin: warm dry and intact with normal color (Shannon Hillman) Course <Shannon Hillman - Last Filed: 03/31/23 18:51> Vital Signs 03/31/23 12:12 Temperature 98.5 F Pulse Rate 115 H Respiratory 18 Rate Blood Pressure 149/95 O2 Sat by Pulse 99 Oximetry - Reevaluation(s) Reevaluation #1: 03/31/23 16:26 He shouldn't reevaluated. Patient reports symptomatic improvement status post medications. Pt aware awaiting CAT scan results. (Shannon Hillman) Reevaluation #2: 03/31/23 17:[address] Méndez who agrees and accepts the patient for admission who recommends starting Rocephin. (Shannon Hillman) Medical Decision Making <Marco Antonio Bolton - Last Filed: 03/31/23 12:00> - Lab Data Result diagrams: 03/31/23 14:10 03/31/23 14:10 <Shannon Hillman - Last Filed: 03/31/23 18:51> - Medical Decision Making I performed a quick note portion of discharged signed Marco Antonio Bolton PA-C (Marco Antonio Bolton) Was pt. sent in by a medical professional or institution (Dr., PA, CAMPER ASSEMBLER, urgent care, hospital, or fpc...) When possible be specific @ -[No] Did you speak to anyone other than the patient for history (EMS, parent, family, police, friend...)? What history was obtained from this source @ -Patient's brother Did you review nursing and triage notes (agree or disagree)? Why? @ -[I reviewed and agree with nursing and triage notes] Were old charts reviewed (outside hosp., previous admission, EMS record, old EKG, old radiological studies, urgent care reports/EKG's, fpc records)? Report findings @ -[No old charts were reviewed] Differential Diagnosis (chest pain, altered mental status, abdominal pain women, abdominal pain men, vaginal bleeding, weakness, fever, dyspnea, syncope, headache, dizziness, GI bleed, back pain, seizure, CVA, palpatations, mental health, musculoskeletal)? @ -[not applicable] EKG interpreted by me (3pts min.). @ -[As above] X-rays interpreted by me (1pt min.). @ -[None done] CT interpreted by me (1pt min.). @ CT with significant stranding to left kidney digestive of pyelonephritis U/S interpreted by me (1pt. min.). @ -[None done] What testing was considered but not performed or refused? (CT, X-rays, U/S, labs)? Why? @ -[None] What meds were considered but not given or refused? Why? @ -[None] Did you discuss the management of the patient with other professionals (professionals i.e. ALLAN Ndiaye, CAMPER ASSEMBLER, lab, RT, psych nurse, social welfare research worker, supervisor patching, teacher, forest fire officer, case planner)? Give summary @ -Case discussed with Dr. Méndez who agrees and accepts the patient for admission Was smoking cessation discussed for >3mins.? @ -[No] Was critical care preformed (if so, how long)? @ -[No] Were there social determinants of health that impacted care today? How? (Homelessness, low income, unemployed, alcoholism, drug addiction, transportation, low edu. Level, literacy, decrease access to med. care, fci, rehab)? @ -[No] Was there de-escalation of care discussed even if they declined (Discuss DNR or withdrawal of care, Hospice)? DNR status @ -[No] What co-morbidities impacted this encounter? (DM, HTN, Smoking, COPD, CAD, Cancer, CVA, ARF, Chemo, Hep., AIDS, mental health diagnosis, sleep apnea, morbid obesity)? @ -[None] Was patient admitted / discharged? Hospital course, mention meds given and route, prescriptions, significant lab abnormalities, going to OR and other pertinent info. @ -Admission. This is a 48-year-old female who presents the emergency department with left lower abdominal pain. Patient had a thorough history and physical exam performed while in the ED. Patient initially tachycardic. Lungs clear to auscultation bilaterally. Abdomen is soft with gen eralized tenderness and marked CVA tenderness. Labratory studies revealed: WBC 19.1, hemoglobin 13.1 sodium 132, potassium 5.1 BUN 18, creatinine 1.13 Urinalysis reveals 2+ protein, large amount of blood, positive nitrates, large leukocyte esterase and greater than [address] reveals that stranding to the left kidney suggestive of pyelonephritis I discussed the results in detail with the patient verbalized understanding and all questions were addressed. She is agreeable with the plan for admission for IV antibiotics and further observation with consult to urology. Case discussed with Dr. Méndez, who accepts the patient for admission. She was started on ceftriaxone. Cultures pending. Case discussed with Dr. Reid, who agrees with the plan of care. Undiagnosed new problem with uncertain prognosis? @ -[No] Drug Therapy requiring intensive monitoring for toxicity (Heparin, Nitro, Insulin, Cardizem)? @ -[No] Were any procedures done? @ -[No] Diagnosis/symptom? @ -Pyelonephritis - Abdominal Pain - Leukocytosis - Acute Kidney Injury Acute, or Chronic, or Acute on Chronic? @ ACUTE Uncomplicated (without systemic symptoms) or Complicated (systemic symptoms)? @ -Complicated Side effects of treatment? @ -[No] Exacerbation, Progression, or Severe Exacerbation? @ -[No] Poses a threat to life or bodily function? How? (Chest pain, [place], [place], pneumonia, PE, COPD, DKA, ARF, appy, cholecystitis, CVA, Diverticulitis, Homicidal, Suicidal, threat to staff... and all critical care pts) @ -Moderate likelihood (RafyShannon) - Lab Data Lab Results 03/31/23 03/31/23 03/31/23 Range/Units 14:10 14:10 14:10 WBC 19.1 H (3.8-10.6) k/uL RBC 4.58 (3.80-5.40) m/uL Hgb 13.1 (11.4-16.0) gm/dL Hct 40.1 (34.0-46.0) % MCV 87.5 (80.0-100.0) fL MCH 28.6 (25.0-35.0) pg MCHC 32.6 (31.0-37.0) g/dL RDW 17.3 H (11.5-15.5) % Plt Count 274 (150-450) k/uL MPV 7.5 Neutrophils % 90 % Lymphocytes % 5 % Monocytes % 3 % Eosinophils % 2 % Basophils % 0 % Neutrophils # 17.2 H (1.3-7.7) k/uL Lymphocytes # 1.0 (1.0-4.8) k/uL Monocytes # 0.5 (0-1.0) k/uL Eosinophils # 0.3 (0-0.7) k/uL Basophils # 0.0 (0-0.2) k/uL Anisocytosis Slight Sodium 132 L (137-145) mmol/L Potassium 5.2 H (3.5-5.1) mmol/L Chloride 106 (98-107) mmol/L Carbon Dioxide 15 L (22-30) mmol/L Anion Gap 11 mmol/L BUN 18 H (7-17) mg/dL Creatinine 1.13 H (0.52-1.04) mg/dL Est GFR (CKD-EPI)AfAm 66 (>60 ml/min/1.73 sqM) Est GFR (CKD-EPI)NonAf 57 (>60 ml/min/1.73 sqM) Glucose 246 H (74-99) mg/dL Plasma Lactic Acid Ovi 1.7 (0.7-2.0) mmol/L Calcium 8.7 (8.4-10.2) mg/dL Total Bilirubin 1.1 (0.2-1.3) mg/dL AST 36 (14-36) U/L ALT 21 (4-34) U/L Alkaline Phosphatase 94 (38-126) U/L Total Protein 8.4 H (6.3-8.2) g/dL Albumin 3.7 (3.5-5.0) g/dL Lipase 147 (23-300) U/L Urine Color Urine Appearance (Clear) Urine pH (5.0-8.0) Ur Specific [place] (1.001-1.035) Urine Protein (Negative) Urine Glucose (UA) (Negative) Urine Ketones (Negative) Urine Blood (Negative) Urine Nitrite (Negative) Urine Bilirubin (Negative) Urine Urobilinogen (<2.0) mg/dL Ur Leukocyte Esterase (Negative) Urine RBC (0-5) /hpf Urine WBC (0-5) /hpf Urine WBC Clumps (None) /hpf Ur Squamous Epith Cells (0-4) /hpf Urine Bacteria (None) /hpf 03/31/23 Range/Units 14:27 WBC (3.8-10.6) k/uL RBC (3.80-5.40) m/uL Hgb (11.4-16.0) gm/dL Hct (34.0-46.0) % MCV (80.0-100.0) fL MCH (25.0-35.0) pg MCHC (31.0-37.0) g/dL RDW (11.5-15.5) % Plt Count (150-450) k/uL MPV Neutrophils % % Lymphocytes % % Monocytes % % Eosinophils % % Basophils % % Neutrophils # (1.3-7.7) k/uL Lymphocytes # (1.0-4.8) k/uL Monocytes # (0-1.0) k/uL Eosinophils # (0-0.7) k/uL Basophils # (0-0.2) k/uL Anisocytosis Sodium (137-145) mmol/L Potassium (3.5-5.1) mmol/L Chloride (98-107) mmol/L Carbon Dioxide (22-30) mmol/L Anion Gap mmol/L BUN (7-17) mg/dL Creatinine (0.52-1.04) mg/dL Est GFR (CKD-EPI)AfAm (>60 ml/min/1.73 sqM) Est GFR (CKD-EPI)NonAf (>60 ml/min/1.73 sqM) Glucose (74-99) mg/dL Plasma Lactic Acid Ovi (0.7-2.0) mmol/L Calcium (8.4-10.2) mg/dL Total Bilirubin (0.2-1.3) mg/dL AST (14-36) U/L ALT (4-34) U/L Alkaline Phosphatase (38-126) U/L Total Protein (6.3-8.2) g/dL Albumin (3.5-5.0) g/dL Lipase (23-300) U/L Urine Color Yellow Urine Appearance Turbid H (Clear) Urine pH 6.0 (5.0-8.0) Ur Specific [place] 1.012 (1.001-1.035) Urine Protein 2+ H (Negative) Urine Glucose (UA) 4+ H (Negative) Urine Ketones Negative (Negative) Urine Blood Large H (Negative) Urine Nitrite Positive H (Negative) Urine Bilirubin Negative (Negative) Urine Urobilinogen <2.0 (<2.0) mg/dL Ur Leukocyte Esterase Large H (Negative) Urine RBC >182 H (0-5) /hpf Urine WBC >182 H (0-5) /hpf Urine WBC Clumps Many H (None) /hpf Ur Squamous Epith Cells 1 (0-4) /hpf Urine Bacteria Many H (None) /hpf Disposition <Marco Antonio Bolton - Last Filed: 03/31/23 12:00> Is patient prescribed a controlled substance at d/c from ED?: No Time of Disposition: 17:23 <Shannon Hillman - Last Filed: 03/31/23 18:51> Clinical Impression: Pyelonephritis, Leukocytosis, TYLER (acute kidney injury), Abdominal pain Disposition: HOME SELF-CARE Condition: Stable Referrals: Bertram Sepulveda Jr, [Primary Care Provider] - 1-2 days
[2023-03-31] MEDS ORDERED: ONDANSETRON 4 MG/2 ML VIAL IVP STA (14:02)
[2023-03-31] MEDS ORDERED: KETOROLAC 15 MG/ML 1 ML VIAL IVP STA (14:02)
[2023-03-31] MEDS ORDERED: FAMOTIDINE 20 MG/2 ML VIAL IV STA (14:02)
[2023-03-31 14:22] LABS: Anisocytosis Slight; Basophils % (A) 0 %; Eosinophils # (A) 0.3 k/uL (0-0.7); Eosinophils % (A) 2 %; HCT 40.1 % (34.0-46.0); HGB 13.1 gm/dL (11.4-16.0); Lymphocytes % (A) 5 %; MCH 28.6 pg (25.0-35.0); MCHC 32.6 g/dL (31.0-37.0); MCV 87.5 fL (80.0-100.0); Mean Platelet Volume 7.5; Monocytes # (A) 0.5 k/uL (0-1.0); Monocytes % (A) 3 %; Neutrophils # (A) 17.2 k/uL (1.3-7.7); Neutrophils % (A) 90 %; Platelet Count 274 k/uL (150-450); RBC 4.58 m/uL (3.80-5.40); RDW 17.3 % (11.5-15.5); WBC 19.1 k/uL (3.8-10.6)
[2023-03-31 14:38] LABS: ALT 21 U/L (4-34); African American GFR (CKD) 66 (>60 ml/min/1.73 sqM); Albumin 3.7 g/dL (3.5-5.0); Anion Gap 11 mmol/L; Blood Urea Nitrogen 18 mg/dL (7-17); Calcium 8.7 mg/dL (8.4-10.2); Carbon Dioxide 15 mmol/L (22-30); Chloride 106 mmol/L (98-107); Glucose 246 mg/dL (74-99); Lipase 147 U/L (23-300); Non-African American GFR(CKD) 57 (>60 ml/min/1.73 sqM); Sodium 132 mmol/L (137-145); Total Bilirubin 1.1 mg/dL (0.2-1.3); Total Protein 8.4 g/dL (6.3-8.2)
[2023-03-31 14:42] LABS: Appearance,Urine Turbid (Clear); Bacteria,Urine Many /hpf; Bilirubin,Urine Negative (Negative); Blood,Urine Large (Negative); Color,Urine Yellow; Glucose,Urine (UA) 4+ (Negative); Ketones,Urine Negative (Negative); Leukocyte Esterase,Urine Large (Negative); Nitrite,Urine Positive (Negative); Protein,Urine 2+ (Negative); RBC,Urine >182 /hpf (0-5); Specific Gravity,Urine 1.012 (1.001-1.035); Squamous Epithelial Cell,Urine 1 /hpf (0-4); Urobilinogen,Urine <2.0 mg/dL (<2.0); WBC,Urine >182 /hpf (0-5)
[2023-03-31 14:42] LABS: Potassium 5.2 mmol/L (3.5-5.1)
[2023-03-31 14:43] LABS: AST 36 U/L (14-36); Alkaline Phosphatase 94 U/L (38-126)
--- NOTE | 2023-03-31 15:55 | US ---
EXAMINATION TYPE: US gallbladder DATE OF EXAM: 03/31/2023 COMPARISON: NONE CLINICAL INDICATION: Female, 48 years old with history of Hx of Cholelithiasis; hx cholelithiasis TECHNIQUE: Multiple sonographic images of the right upper quadrant are obtained. FINDINGS: EXAM MEASUREMENTS: Liver Length: 19.9 cm Gallbladder Wall: 0.2 cm CBD: 0.2 cm Right Kidney: 10.4x3.2x5.6 cm RETORT LOADER NOTES: Pancreas: Tail obscured by overlying bowel gas Liver: Increased attenuation Gallbladder: echogenic area up to 0.5cm adjacent to wall. Small shadowing stones not seen from last time Evidence for sonographic Mann's sign: No CBD: wnl Right Kidney: wnl exam limited due to bowel, body habitus and patient inability to tolerate transducer pressure IMPRESSION: 1. the gallbladder is hydropic with small gallstones some of which may be adherent versus polyps. Gal lbladder wall is not thickened nor is there evidence for pericholecystic fluid.
--- NOTE | 2023-03-31 17:07 | CT ---
EXAMINATION TYPE: CT abdomen pelvis w con CT DLP: 2622 mGycm, Automated exposure control for dose reduction was used. DATE OF EXAM: 03/31/2023 4:37 PM COMPARISON: CT abdomen pelvis most recent from 10/06/2021 CLINICAL INDICATION:Female, 48 years old with history of abdominal pain; pain TECHNIQUE: Axial CT of the abdomen and pelvis. Sagittal and coronal reformats were created on a [employer] workstation. Contrast used:100 mL of Isovue 300 with IV Contrast, (none if empty) Oral contrast used: without Oral Contrast (none if empty) FINDINGS: LOWER CHEST: Unremarkable ABDOMEN LIVER: Unremarkable GALLBLADDER AND BILE DUCTS: Unremarkable. PANCREAS: Unremarkable. SPLEEN: Unremarkable. ADRENAL GLANDS: Unremarkable. KIDNEYS AND URETERS: Extensive fat stranding changes are seen around the left kidney. No obstructing calculus visualized. There is mild asymmetric dilation compared to prior contralateral side. There ma y be an mild delayed nephrogram most pronounced on the delayed imaging. PELVIS BLADDER: Unremarkable REPRODUCTIVE: Left ovarian cyst measuring 4.5 x 3.6 cm. ABDOMEN & PELVIS STOMACH AND BOWEL: No evidence of bowel obstruction. PERITONEUM/RETROPERITONEUM: No evidence of pneumoperitoneum or free fluid. VASCULATURE: Mild atherosclerotic calcifications are present throughout the abdominal aorta and its b ranches. No evidence of aortic aneurysm. MUSCULOSKELETAL: No acute osseous abnormalities. Moderate disc degeneration changes are present throu ghout the thoracolumbar spine. LYMPH NODES: No gross evidence for lymphadenopathy. SOFT TISSUE/ABDOMINAL WALL: Ventral fat-containing hernia. IMPRESSION: 1. Inflammation changes around the left kidney without evidence for obstructing calculus. Correlate for recently passed stone. Correlate for ascending infection such as in the setting of pyelonephritis . 2. No additional acute abdominal process visualized.
[2023-03-31] MEDS ORDERED: NALOXONE 0.4 MG/ML 1 ML VIAL IV PRN (17:31)
[2023-03-31] MEDS ORDERED: SODIUM CHLORIDE 0.9% 1,000 ML IV SCH (17:45)
[2023-03-31] MEDS: ACETAMINOPHEN TAB 325 MG TAB PO PRN (22:39)
[2023-04-01 05:33] LABS: Glucose,Whole Blood 241 mg/dL (70-110)
[2023-04-01] MEDS ORDERED: DEXTROSE 50% SYRINGE 50 ML IVP PRN ×2 (06:06)
[2023-04-01] MEDS ORDERED: SODIUM CHLORIDE 0.9% 250 ML IV STA (06:16)
[2023-04-01] MEDS ORDERED: SODIUM CHLORIDE 0.9% 1,000 ML IV SCH (06:30)
[2023-04-01 07:04] LABS: Anisocytosis Slight; Basophils % (A) 0 %; Eosinophils # (A) 0.1 k/uL (0-0.7); Eosinophils % (A) 1 %; HCT 35.5 % (34.0-46.0); HGB 11.3 gm/dL (11.4-16.0); Lymphocytes # (A) 1.1 k/uL (1.0-4.8); Lymphocytes % (A) 6 %; MCH 28.3 pg (25.0-35.0); MCHC 31.8 g/dL (31.0-37.0); MCV 88.9 fL (80.0-100.0); Mean Platelet Volume 7.4; Monocytes # (A) 0.8 k/uL (0-1.0); Monocytes % (A) 4 %; Neutrophils # (A) 15.5 k/uL (1.3-7.7); Neutrophils % (A) 88 %; Platelet Count 236 k/uL (150-450); RBC 3.99 m/uL (3.80-5.40); RDW 17.5 % (11.5-15.5); WBC 17.6 k/uL (3.8-10.6)
[2023-04-01 07:06] LABS: Chloride 106 mmol/L (98-107)
[2023-04-01 07:07] LABS: ALT 16 U/L (4-34); AST 19 U/L (14-36); African American GFR (CKD) 47 (>60 ml/min/1.73 sqM); Albumin 3.1 g/dL (3.5-5.0); Alkaline Phosphatase 92 U/L (38-126); Anion Gap 11 mmol/L; Blood Urea Nitrogen 22 mg/dL (7-17); Calcium 8.3 mg/dL (8.4-10.2); Carbon Dioxide 16 mmol/L (22-30); Glucose 231 mg/dL (74-99); Non-African American GFR(CKD) 41 (>60 ml/min/1.73 sqM); Potassium 4.4 mmol/L (3.5-5.1); Sodium 133 mmol/L (137-145); Total Bilirubin 1.1 mg/dL (0.2-1.3); Total Protein 7.1 g/dL (6.3-8.2)
[2023-04-01 07:40] LABS: Glucose,Whole Blood 259 mg/dL (70-110)
[2023-04-01] MEDS: LINAGLIPTIN 5 MG TABLET PO SCH (08:18)
[2023-04-01] MEDS: ACETAMINOPHEN TAB 325 MG TAB PO PRN ×2 (08:18→22:01)
[2023-04-01] MEDS: INSULIN ASPART (NovoLOG) 100 UNIT/ML VIAL SQ SCH ×3 (08:21→18:07)
[2023-04-01] MEDS: DEXTROSE 5% IN WATER 1,000 ML with SODIUM BICARB (1 MEQ/ML) 150 ML IV SCH (11:28)
[2023-04-01 11:54] LABS: Glucose,Whole Blood 225 mg/dL (70-110)
--- NOTE | 2023-04-01 12:30 | P.NPCON ---
History of Present Illness - Reason for Consult acute renal failure - History of Present Illness Patient is a 48-year-old female with past medical history of hypertension, type 2 diabetes and obesity. Patient is admitted to the hospital with complaints of abdominal pain mostly left-sided and mid abdomen going on for a few days and progressively got worse last night after dinner. Patient denied any fever. No significant urinary symptoms UA was highly suggestive of UTI. Ultrasound shows changes suggestive of inflammation in the left kidney. No history of repeated UTIs No history of kidney stones Serum creatinine was 1.1 on admission and increased to 1.49 today. Prior creatinine at 0.5 on 10/06/2021. Blood pressure was low with systolic in the 90s. Currently maintained on IV fluids. Patient states she is feeling better. Review of Systems As per HPI. Past Medical History Past Medical History: Heart Failure, COPD, Fibromyalgia, Hypertension, Musculoskeletal Disorder, Neurologic Disorder, Skin Disorder Additional Past Medical History / Comment(s): migraines History of Any Multi-Drug Resistant Organisms: None Reported Past Surgical History: Orthopedic Surgery Additional Past Surgical History / Comment(s): Bilateral knees arthroscopies, R achilles tendon injury with surgical repair. Additional Past Anesthesia/Blood Transfusion Reaction / Comment(s): Pt states sometimes she is slow to wake. Pt has never received blood. Past Psychological History: Depression Smoking Status: Vaper Past Alcohol Use History: None Reported Past Drug Use History: None Reported - Past Family History Father History Unknown: Yes Mother Family Medical History: Cancer, Diabetes Mellitus Additional Family Medical History / Comment(s): Mother from breast cancer that metastasized to her brain at the age of 73 yrs. Medications and Allergies Home Medications Medication Instructions Recorded Confirmed Type DULoxetine HCL [Cymbalta] 30 mg PO DAILY 10/06/21 03/31/23 History Insulin Glargine,Hum.rec.anlog 20 unit SQ DAILY 10/06/21 03/31/23 History [Lantus Solostar Pen] Simvastatin [Zocor] 20 mg PO HS 10/06/21 03/31/23 History lisinopriL [Zestril] 10 mg PO DAILY 10/06/21 03/31/23 History sitaGLIPtin [Januvia] 50 mg PO DAILY 03/31/23 03/31/23 History Allergies Allergy/AdvReac Type Severity Reaction Status Date / Time amoxicillin AdvReac Itching Verified 03/31/23 19:07 clavulanic acid AdvReac welts Verified 03/31/23 19:07 [From Augmentin] hydrocodone bitartrate AdvReac Itching Verified 03/31/23 19:07 [From Vicodin] Physical Exam Vitals: Vital Signs Pulse Resp BP Pulse Ox 04/01/23 08:14 111 H 18 110/68 96 04/01/23 05:29 60 19 94/66 100 03/31/23 22:06 111 H 19 126/101 97 Patient is awake, comfortable, no acute distress Examination of the heart S1 and S2 Examination of the lungs bilateral breath sounds are heard Abdomen is soft nontender Examination of the lower extremities shows no evidence of edema CLINICAL RESEARCH ASSOCIATE exam is grossly intact Results - Lab Results Most recent lab results Calcium 8.3 mg/dL (8.4-10.2) L 04/01/23 06:05 04/01/23 06:05 04/01/23 06:05 Assessment and Plan Assessment: 1. Acute kidney injury ATN currently nonoliguric associated with underlying infection and hypoperfusion with low blood pressure. No obstruction noted on computed tomography scan. UA suggestive of UTI. 2. UTI with sepsis maintained on IV antibiotics. Possible recent passage of a stone however patient does not have any prior history of kidney stones. 3. Non-gap metabolic acidosis associated with acute kidney injury 4. Hypertension blood pressure is currently low 5. Type 2 diabetes maintained on insulin Plan: Switch IV fluids to IV bicarb Continue with empiric antibiotics Follow-up on urine cultures Repeat labs in a.m. Thank you for the consultation. We will continue to follow the patient with you during her hospitalization.
--- NOTE | 2023-04-01 17:18 | P.GSCN ---
History of Present Illness Consult date: 04/01/23 Reason for Consult: left-sided pyelonephritis, UTI History of present illness: this is a 48-year-old female that presented to the hospital with left-sided flank pain associated with suprapubic pressure and chills. She underwent a CT abdomen and pelvis that showed evidence of pyelonephritis involving the left kidney with mild dilation of the collecting system. No evidence of kidney stones or any renal abscesses. Denies any previous history of recurrent UTIs, indicated that her last UTI was more than 10 years ago. She indicated pain is also associated with nausea but denies any vomiting. Denies any fevers, dysuria or gross hematuria. Indicated since the hospital admission the pain has slightly improved but continues to have flank pain. On presentation patient is tachycardic, with evidence of leukocytosis at 19.1 Review of Systems - Constitutional Reports chills, Reports weakness, Denies fever - Cardiovascular Denies chest pain, Denies shortness of breath - Respiratory Denies cough, Denies 7 - Genitourinary Genitourinary: Reports flank pain, Denies dysuria, Denies hematuria Past Medical History Past Medical History: Heart Failure, COPD, Fibromyalgia, Hypertension, Musculoskeletal Disorder, Neurologic Disorder, Skin Disorder Additional Past Medical History / Comment(s): migraines History of Any Multi-Drug Resistant Organisms: None Reported Past Surgical History: Orthopedic Surgery Additional Past Surgical History / Comment(s): Bilateral knees arthroscopies, R achilles tendon injury with surgical repair. Additional Past Anesthesia/Blood Transfusion Reaction / Comm: Pt states sometimes she is slow to wake. Pt has never received blood. Past Psychological History: Depression Smoking Status: Vaper Past Alcohol Use History: None Reported Past Drug Use History: None Reported - Past Family History Father History Unknown: Yes Mother Family Medical History: Cancer, Diabetes Mellitus Additional Family Medical History / Comment(s): Mother from breast cancer that metastasized to her brain at the age of 73 yrs. Medications and Allergies Home Medications Medication Instructions Recorded Confirmed Type DULoxetine HCL [Cymbalta] 30 mg PO DAILY 10/06/21 03/31/23 History Insulin Glargine,Hum.rec.anlog 20 unit SQ DAILY 10/06/21 03/31/23 History [Lantus Solostar Pen] Simvastatin [Zocor] 20 mg PO HS 10/06/21 03/31/23 History lisinopriL [Zestril] 10 mg PO DAILY 10/06/21 03/31/23 History sitaGLIPtin [Januvia] 50 mg PO DAILY 03/31/23 03/31/23 History Allergies Allergy/AdvReac Type Severity Reaction Status Date / Time amoxicillin AdvReac Itching Verified 03/31/23 19:07 clavulanic acid AdvReac welts Verified 03/31/23 19:07 [From Augmentin] hydrocodone bitartrate AdvReac Itching Verified 03/31/23 19:07 [From Vicodin] Surgical - Exam Vital Signs Temp Pulse Resp BP Pulse Ox 98.5 F 115 H 18 149/95 99 03/31/23 12:12 03/31/23 12:12 03/31/23 12:12 03/31/23 12:12 03/31/23 12:12 - General no distress, moderate pain - Eyes normal ocular movement, no pale - ENT normal nares, normal mucosa - Respiratory normal expansion, normal respiratory effort - Abdomen Abdomen: soft, tender (left flank) - Psychiatric oriented to time, oriented to person, oriented to place Results - Labs 04/01/23 06:05 04/01/23 06:05 Abnormal Lab Results - Last 24 Hours (Table) 04/01/23 04/01/23 04/01/23 Range/Units 05:32 06:05 06:05 WBC 17.6 H (3.8-10.6) k/uL Hgb 11.3 L (11.4-16.0) gm/dL RDW 17.5 H (11.5-15.5) % Neutrophils # 15.5 H (1.3-7.7) k/uL Sodium 133 L (137-145) mmol/L Carbon Dioxide 16 L (22-30) mmol/L BUN 22 H (7-17) mg/dL Creatinine 1.49 H (0.52-1.04) mg/dL Glucose 231 H (74-99) mg/dL POC Glucose (mg/dL) 241 H (70-110) mg/dL Calcium 8.3 L (8.4-10.2) mg/dL Albumin 3.1 L (3.5-5.0) g/dL 04/01/23 04/01/23 Range/Units 07:38 11:53 WBC (3.8-10.6) k/uL Hgb (11.4-16.0) gm/dL RDW (11.5-15.5) % Neutrophils # (1.3-7.7) k/uL Sodium (137-145) mmol/L Carbon Dioxide (22-30) mmol/L BUN (7-17) mg/dL Creatinine (0.52-1.04) mg/dL Glucose (74-99) mg/dL POC Glucose (mg/dL) 259 H 225 H (70-110) mg/dL Calcium (8.4-10.2) mg/dL Albumin (3.5-5.0) g/dL Diabetes panel 04/01/23 Range/Units 06:05 Sodium 133 L (137-145) mmol/L Potassium 4.4 (3.5-5.1) mmol/L Chloride 106 (98-107) mmol/L Carbon Dioxide 16 L (22-30) mmol/L BUN 22 H (7-17) mg/dL Creatinine 1.49 H (0.52-1.04) mg/dL Glucose 231 H (74-99) mg/dL Calcium 8.3 L (8.4-10.2) mg/dL AST 19 (14-36) U/L ALT 16 (4-34) U/L Alkaline Phosphatase 92 (38-126) U/L Total Protein 7.1 (6.3-8.2) g/dL Albumin 3.1 L (3.5-5.0) g/dL Calcium panel 04/01/23 Range/Units 06:05 Calcium 8.3 L (8.4-10.2) mg/dL Albumin 3.1 L (3.5-5.0) g/dL Pituitary panel 04/01/23 Range/Units 06:05 Sodium 133 L (137-145) mmol/L Potassium 4.4 (3.5-5.1) mmol/L Chloride 106 (98-107) mmol/L Carbon Dioxide 16 L (22-30) mmol/L BUN 22 H (7-17) mg/dL Creatinine 1.49 H (0.52-1.04) mg/dL Glucose 231 H (74-99) mg/dL Calcium 8.3 L (8.4-10.2) mg/dL Adrenal panel 04/01/23 Range/Units 06:05 Sodium 133 L (137-145) mmol/L Potassium 4.4 (3.5-5.1) mmol/L Chloride 106 (98-107) mmol/L Carbon Dioxide 16 L (22-30) mmol/L BUN 22 H (7-17) mg/dL Creatinine 1.49 H (0.52-1.04) mg/dL Glucose 231 H (74-99) mg/dL Calcium 8.3 L (8.4-10.2) mg/dL Total Bilirubin 1.1 (0.2-1.3) mg/dL AST 19 (14-36) U/L ALT 16 (4-34) U/L Alkaline Phosphatase 92 (38-126) U/L Total Protein 7.1 (6.3-8.2) g/dL Albumin 3.1 L (3.5-5.0) g/dL - Imaging CT scan - abdomen: image reviewed (left collecting system dilation, edema involving the left parenchyma with fat stranding) Assessment and Plan Assessment: 48-year-old female admitted to the hospital left-sided pyelonephritis. Reviewed the images no evidence of obstructing stone, or renal abscess. pain is improving since hospital admission, white count is slowly trending down. From Urology standpoint no acute surgical intervention, recommend continue antibiotics. Swetha angel the evidence of pyelonephritis recommend 14 days of antibiotics based on culture susceptibility
[2023-04-01 17:44] LABS: Glucose,Whole Blood 190 mg/dL (70-110)
[2023-04-01 21:20] LABS: Glucose,Whole Blood 350 mg/dL (70-110)
[2023-04-01] MEDS: INSULIN DETEMIR (LEVEMIR) 100 UNIT/ML SYR SQ SCH (22:01)
[2023-04-01] MEDS: HYDROmorphone 1 MG/ML 1 ML SYRINGE IVP PRN (22:30)
[2023-04-02] MEDS: DEXTROSE 5% IN WATER 1,000 ML with SODIUM BICARB (1 MEQ/ML) 150 ML IV SCH ×2 (06:05→15:18)
[2023-04-02 07:31] LABS: Glucose,Whole Blood 242 mg/dL (70-110)
[2023-04-02] MEDS: INSULIN ASPART (NovoLOG) 100 UNIT/ML VIAL SQ SCH ×3 (08:30→18:25)
[2023-04-02] MEDS: HYDROmorphone 1 MG/ML 1 ML SYRINGE IVP PRN ×2 (08:46→20:24)
[2023-04-02] MEDS: LINAGLIPTIN 5 MG TABLET PO SCH (08:46)
[2023-04-02 10:50] LABS: African American GFR (CKD) 65 (>60 ml/min/1.73 sqM); Anion Gap 7 mmol/L; Blood Urea Nitrogen 17 mg/dL (7-17); Calcium 8.3 mg/dL (8.4-10.2); Carbon Dioxide 21 mmol/L (22-30); Chloride 105 mmol/L (98-107); Glucose 216 mg/dL (74-99); Non-African American GFR(CKD) 57 (>60 ml/min/1.73 sqM); Potassium 4.2 mmol/L (3.5-5.1); Sodium 133 mmol/L (137-145)
--- NOTE | 2023-04-02 11:16 | P.PN ---
Subjective Patient is seen for f/u for TYLER and left pyelonephritis. C/o abdominal today. Just received dilaudid. S/b Urology. No plans for intervention as long as pain continues to improve. Objective - Vital Signs Vital signs: Vital Signs Temp 98.8 F 04/02/23 07:32 Pulse 101 H 04/02/23 07:32 Resp 20 04/02/23 07:32 BP 124/77 04/02/23 07:32 Pulse Ox 98 04/02/23 07:32 FiO2 Intake & Output 04/01/23 04/02/23 04/02/23 18:59 06:59 18:59 Weight 125.191 kg Other: Voiding Method Toilet # Voids 1 3 - Exam Patient is awake, comfortable, no acute distress Examination of the heart S1 and S2 Examination of the lungs bilateral breath sounds are heard Abdomen is soft, tenderness noted lower abdomen Examination of the lower extremities shows no evidence of edema [employer] exam is grossly intact - Labs CBC & Chem 7: 04/01/23 06:05 04/02/23 10:09 Labs: Abnormal Lab Results - Last 24 Hours (Table) 04/01/23 04/01/23 04/01/23 Range/Units 11:53 17:43 21:18 Sodium (137-145) mmol/L Carbon Dioxide (22-30) mmol/L Creatinine (0.52-1.04) mg/dL Glucose (74-99) mg/dL POC Glucose (mg/dL) 225 H 190 H 350 H (70-110) mg/dL Calcium (8.4-10.2) mg/dL 04/02/23 04/02/23 Range/Units 07:29 10:09 Sodium 133 L (137-145) mmol/L Carbon Dioxide 21 L (22-30) mmol/L Creatinine 1.14 H (0.52-1.04) mg/dL Glucose 216 H (74-99) mg/dL POC Glucose (mg/dL) 242 H (70-110) mg/dL Calcium 8.3 L (8.4-10.2) mg/dL Microbiology - Last 24 Hours (Table) 03/31/23 18:20 Blood Culture - Preliminary Blood 03/31/23 18:05 Blood Culture - Preliminary Blood Assessment and Plan Assessment: 1. Acute kidney injury ATN currently nonoliguric associated with underlying infection and hypoperfusion with low blood pressure. No obstruction noted on computed tomography scan. UA suggestive of UTI. 2. UTI with sepsis maintained on IV antibiotics. Possible recent passage of a stone however patient does not have any prior history of kidney stones. 3. Non-gap metabolic acidosis associated with acute kidney injury 4. Hypertension blood pressure is currently low 5. Type 2 diabetes maintained on insulin Plan: Continue with IV bicarb Continue with empiric antibiotics Follow-up on urine cultures Repeat labs in a.m.
--- NOTE | 2023-04-02 12:03 | P.PN ---
Subjective Progress Note Date: 04/02/23 No acute overnight events, indicates flank pain is improving. He had a temperature of 100.6 yesterday Objective - Vital Signs Vital signs: Vital Signs Temp 98.8 F 04/02/23 07:32 Pulse 101 H 04/02/23 07:32 Resp 20 04/02/23 07:32 BP 124/77 04/02/23 07:32 Pulse Ox 98 04/02/23 07:32 FiO2 Intake & Output 04/01/23 04/02/23 04/02/23 18:59 06:59 18:59 Weight 125.191 kg Other: Voiding Method Toilet # Voids 1 3 - Gastrointestinal General gastrointestinal: Present: soft, tenderness (Bilateral flank). Absent: distended - Psychiatric Psychiatric: Present: A&O x's 3 - Labs CBC & Chem 7: 04/01/23 06:05 04/02/23 10:09 Labs: Abnormal Lab Results - Last 24 Hours (Table) 04/01/23 04/01/23 04/02/23 Range/Units 17:43 21:18 07:29 Sodium (137-145) mmol/L Carbon Dioxide (22-30) mmol/L Creatinine (0.52-1.04) mg/dL Glucose (74-99) mg/dL POC Glucose (mg/dL) 190 H 350 H 242 H (70-110) mg/dL Calcium (8.4-10.2) mg/dL 04/02/23 Range/Units 10:09 Sodium 133 L (137-145) mmol/L Carbon Dioxide 21 L (22-30) mmol/L Creatinine 1.14 H (0.52-1.04) mg/dL Glucose 216 H (74-99) mg/dL POC Glucose (mg/dL) (70-110) mg/dL Calcium 8.3 L (8.4-10.2) mg/dL Microbiology - Last 24 Hours (Table) 03/31/23 18:20 Blood Culture - Preliminary Blood 03/31/23 18:05 Blood Culture - Preliminary Blood Assessment and Plan Assessment: 48-year-old female admitted to the hospital left-sided pyelonephritis. Reviewed the images no evidence of obstructing stone, or renal abscess. pain is improving . From Urology standpoint no acute surgical intervention, recommend continue antibiotics. Given the evidence of pyelonephritis recommend 14 days of antibiotics based on culture susceptibility
[2023-04-02 12:18] LABS: Glucose,Whole Blood 220 mg/dL (70-110)
--- NOTE | 2023-04-02 15:30 | P.HPIM ---
History of Present Illness H&P Date: 04/01/23 Chief Complaint: flank tenderness, fever patient presented to the emergency room complaining of low back pain and flank tenderness fever and right upper quadrant pain,with nausea and dry heaves Review of Systems Constitutional: Reports fever, Reports sweats Ears, nose, mouth and throat: Reports as per HPI Cardiovascular: Reports as per HPI Respiratory: Reports as per HPI Gastrointestinal: Reports abdominal pain (flank pain), Reports dyspepsia Genitourinary: Reports incomplete emptying, Reports pelvic pain Menstruation: Reports postmenopausal Musculoskeletal: Reports low back pain Integumentary: Reports as per HPI Neurological: Reports as per HPI Past Medical History Past Medical History: Heart Failure, COPD, Fibromyalgia, Hypertension, Musculoskeletal Disorder, Skin Disorder Additional Past Medical History / Comment(s): migraines, diabetic neuropathy History of Any Multi-Drug Resistant Organisms: None Reported Past Surgical History: Orthopedic Surgery Additional Past Surgical History / Comment(s): Bilateral knees arthroscopies, R achilles tendon injury with surgical repair, tubal ligation Additional Past Anesthesia/Blood Transfusion Reaction / Comment(s): Pt states sometimes she is slow to wake. Pt has never received blood. Past Psychological History: Depression Additional Psychological History / Comment(s): Pt resides with her 2 sons ages 16 and 22 yrs and her nephew age 16 yrs and her exspouse. She drives. Smoking Status: Vaper Past Alcohol Use History: None Reported Additional Past Alcohol Use History / Comment(s): Pt started smoking in 1992 and is a ppd smoker. Past Drug Use History: None Reported - Past Family History Father History Unknown: Yes Mother Family Medical History: Cancer, Diabetes Mellitus Additional Family Medical History / Comment(s): Mother from breast cancer that metastasized to her brain at the age of 73 yrs. Medications and Allergies Home Medications Medication Instructions Recorded Confirmed Type DULoxetine HCL [Cymbalta] 30 mg PO DAILY 10/06/21 03/31/23 History Insulin Glargine,Hum.rec.anlog 20 unit SQ DAILY 10/06/21 03/31/23 History [Lantus Solostar Pen] Simvastatin [Zocor] 20 mg PO HS 10/06/21 03/31/23 History lisinopriL [Zestril] 10 mg PO DAILY 10/06/21 03/31/23 History sitaGLIPtin [Januvia] 50 mg PO DAILY 03/31/23 03/31/23 History Allergies Allergy/AdvReac Type Severity Reaction Status Date / Time amoxicillin AdvReac Itching Verified 03/31/23 19:07 clavulanic acid AdvReac welts Verified 03/31/23 19:07 [From Augmentin] hydrocodone bitartrate AdvReac Itching Verified 03/31/23 19:07 [From Vicodin] Physical Exam Osteopathic Statement: *. No significant issues noted on an osteopathic structural exam other than those noted in the History and Physical/Consult. Vitals: Vital Signs Temp Pulse Resp BP Pulse Ox 04/02/23 12:32 99.1 F 103 H 20 122/80 98 04/02/23 07:32 98.8 F 101 H 20 124/77 98 04/02/23 02:00 99.1 F 68 18 102/68 95 04/01/23 22:34 99.7 F H 04/01/23 19:08 100.6 F H 111 H 18 135/79 97 04/01/23 17:45 98.9 F 114 H 18 146/87 98 Intake and Output 04/02/23 04/02/23 04/02/23 06:59 14:59 22:59 Other: Voiding Method Toilet # Voids 3 General: [Patient awake, alert and oriented times 3. Patient in no acute distress. morbidly obese HEENT: [PERRL. EOMI. No pharyngeal erythema or exudate.] Neck: [No adenopathy.] Cardiac: [Heart regular in rate and rhythm. No S3. No S4. No clicks, rubs. No murmur.] Lungs: [Clear to auscultation bilaterally.] Abdomen: [No mass. No organomegaly. Bowel sounds presnt and normoactive in all 4 quadrants. low back pain and flank pain Extremes: [No edema no cyanosis no claudication normal pulses] : normal female genitalia Musculoskeletal: [No joint erythema, edema or tenderness.] Skin: [No rash.] Neurologic: [No lateralizing deficits. CN II - XII grossly intact.] Lymphatic: [No adenopathy.] Results CBC & Chem 7: 04/01/23 06:05 04/02/23 10:09 Labs: Abnormal Lab Results - Last 24 Hours (Table) 04/01/23 04/01/2304/02/23 Range/Units 17:43 21:18 07:29 Sodium (137-145) mmol/L Carbon Dioxide (22-30) mmol/L Creatinine (0.52-1.04) mg/dL Glucose (74-99) mg/dL POC Glucose (mg/dL) 190 H 350 H 242 H (70-110) mg/dL Calcium (8.4-10.2) mg/dL 04/02/23 04/02/23 Range/Units 10:09 12:15 Sodium 133 L (137-145) mmol/L Carbon Dioxide 21 L (22-30) mmol/L Creatinine 1.14 H (0.52-1.04) mg/dL Glucose 216 H (74-99) mg/dL POC Glucose (mg/dL) 220 H (70-110) mg/dL Calcium 8.3 L (8.4-10.2) mg/dL Microbiology - Last 24 Hours (Table) 03/31/23 18:20 Blood Culture - Preliminary Blood 03/31/23 18:05 Blood Culture - Preliminary Blood Thrombosis Risk Factor Assmnt - Choose All That Apply Any of the Below Risk Factors Present?: Yes Each Factor Represents 1 point: Abnormal pulmonary function (COPD), Age 41-60 years Thrombosis Risk Factor Assessment Total Risk Factor Score: 2 Thrombosis Risk Factor Assessment Level: Low Risk Assessment and Plan (1) TYLER (acute kidney injury) Current Visit: Yes Status: Acute Code(s): N17.9 - ACUTE KIDNEY FAILURE, UNSPECIFIED SNOMED Code(s): 77855252 (2) Abdominal pain Current Visit: Yes Status: Acute Code(s): R10.9 - UNSPECIFIED ABDOMINAL PAIN SNOMED Code(s): 17368827 (3) Leukocytosis Current Visit: Yes Status: Acute Code(s): D72.829 - ELEVATED WHITE BLOOD CELL COUNT, UNSPECIFIED SNOMED Code(s): 991358925 (4) Pyelonephritis Current Visit: Yes Status: Acute Code(s): N12 - TUBULO-INTERSTITIAL NEPHRITIS, NOT SPCF ACUTE OR CHRONIC SNOMED Code(s): 83336891 (5) Acute pulmonary edema Current Visit: No Status: Acute Code(s): J81.0 - ACUTE PULMONARY EDEMA SNOMED Code(s): 07943270 (6) Cellulitis of left breast Current Visit: No Status: Acute Code(s): N61.0 - MASTITIS WITHOUT ABSCESS SNOMED Code(s): 38288729 (7) Congestive heart failure Current Visit: No Status: Acute Code(s): I50.9 - HEART FAILURE, UNSPECIFIED SNOMED Code(s): 41420424 (8) Disruption of traumatic injury wound repair, initial encounter Current Visit: No Status: Acute Code(s): T81.33XA - DISRUPTION OF TRAUMATIC INJURY WOUND REPAIR, INIT ENCNTR SNOMED Code(s): 55673487 Plan: admit to the hospital Consultation with urology consultation with nephrology IV antibiotics Pain management We'll continue to follow closely
--- NOTE | 2023-04-02 17:11 | CDI ---
Documentation Clarification Form Date: 04/02/2023 04:46:00 PM From: Ami Mireles RN, CCDS Admit Date: 03/31/2023 09:29:00 PM Patient Name: Ute Anaya Visit Number: [id number] Discharge Date: ATTENTION: The Clinical Documentation Specialists (CDI) and [facility] Coding Staff appreciate your assistance in clarifying documentation. Please respond to the clarification below the line at the bottom and electronically sign. The CDI & [facility] Coding staff will review the response and follow-up if needed. Please note: Queries are made part of the Legal Health Record. If you have any questions, please contact the author of this message via ITS. Dr. Bertram Sepulveda The patient has sepsis documented in the Nephrology consult and subsequent progress notes. Based on this information and the findings below, is there an additional diagnosis that is clinically appropriate for this patient? History/Risk Factors: Heart Failure, COPD, Fibromyalgia, Hypertension, Musculoskeletal Disorder, Neurologic Disorder, Skin Disorder 04/01 Nephrology consult: Acute kidney injury ATN currently nonoliguric associated with underlying infection and hypoperfusion with low blood pressure. UTI with sepsis maintained on IV antibiotics. Urology consult: 48-year-old female admitted to the hospital left-sided pyelonephritis. From Urology standpoint no acute surgical intervention, continue antibiotics. Clinical Indicators:48-year-old female present with complaints of abdominal pain mostly left-sided and mid abdomen going on for a few days and progressively got worse last night after dinner. Patient denied any fever. No significant urinary symptoms. 03/31 WBC 19.1, Neutrophils 17.2 Na+ 132, BUN18 CR 1.13 GFR 57, Lactic acid 1.7 03/31 UA: Positive Nitrite, Ur Leukocyte Esterase-Large, Urine WBC >182 03/31 Blood cultures: Pending (no growth after 24 hrs) 03/31 VS: 149/95 115 18 99% RA 04/01 VS: 135/79 111 18 100.6 97% RA Treatment: Rocephin 2GM IVPB Q 24 HRS 03/31 then 1 GM IVPB Q 24 HRS 04/01-04/02 .9NS 250 ML Bolus 04/01 Dextrose/H20 with Na bicarb 150 ML @ 75 ML/HR Is there an additional diagnosis that is clinically appropriate for this patient? [ x] Sepsis, present on admission [ ] Sepsis ruled out [ ] Other, please specify [ ] Unable to determine SIRS Criteria: 2 or more of the following may indicate SIRS Temperature < 96.8F (36C) or > 101.0F (38.3C) Heart Rate > 90 bpm Respiratory Rate > 20 breaths/min or PaCO2 < 32 mmHg White Blood Cell Count > 12,000 or < 4,000 cells/mm3 or > 10% bands __patient admitted started on antibiotic therapy early sepsis diagnostic studies demonstrated reversal and/or improvement ____ (Template Last Reviewed: July 2022) MTDD
[2023-04-02 17:35] LABS: Glucose,Whole Blood 196 mg/dL (70-110)
[2023-04-02 20:52] LABS: Glucose,Whole Blood 243 mg/dL (70-110)
[2023-04-02] MEDS: INSULIN DETEMIR (LEVEMIR) 100 UNIT/ML SYR SQ SCH (21:20)
[2023-04-03] MEDS: HYDROmorphone 1 MG/ML 1 ML SYRINGE IVP PRN ×5 (00:46→16:41)
[2023-04-03] MEDS: DEXTROSE 5% IN WATER 1,000 ML with SODIUM BICARB (1 MEQ/ML) 150 ML IV SCH (05:25)
[2023-04-03 07:24] LABS: Glucose,Whole Blood 218 mg/dL (70-110)
[2023-04-03] MEDS: LINAGLIPTIN 5 MG TABLET PO SCH (08:43)
[2023-04-03] MEDS: INSULIN ASPART (NovoLOG) 100 UNIT/ML VIAL SQ SCH ×3 (08:43→17:37)
[2023-04-03 10:09] LABS: African American GFR (CKD) 68 (>60 ml/min/1.73 sqM); Anion Gap 8 mmol/L; Blood Urea Nitrogen 18 mg/dL (7-17); Calcium 8.3 mg/dL (8.4-10.2); Carbon Dioxide 23 mmol/L (22-30); Chloride 104 mmol/L (98-107); Glucose 229 mg/dL (74-99); Non-African American GFR(CKD) 59 (>60 ml/min/1.73 sqM); Potassium 4.1 mmol/L (3.5-5.1); Sodium 135 mmol/L (137-145)
[2023-04-03 11:43] LABS: Glucose,Whole Blood 208 mg/dL (70-110)
--- NOTE | 2023-04-03 11:50 | P.PN ---
Subjective No acute overnight events, indicates flank pain is improving. she was afebrile overnight Objective - Vital Signs Vital signs: Vital Signs Temp 98.6 F 04/03/23 07:20 Pulse 86 04/03/23 07:20 Resp 20 04/03/23 07:20 BP 142/92 04/03/23 07:20 Pulse Ox 94 L 04/03/23 07:20 FiO2 Intake & Output 04/02/23 04/03/23 04/03/23 18:59 06:59 18:59 Intake Total 950 1000 Balance 950 1000 Intake: Intake, IV Titration 950 Amount Dextrose 5% in Water 1, 900 000 ml @ 75 mls/hr IV . [id number] EMANUEL with Sodium Bicarb (1 Meq/ml) 150 ml Rx#:[id number] cefTRIAXone 1 gm In 50 Sodium Chloride 0.9% 50 ml @ 100 mls/hr IVPB Q24H EMANUEL Rx#:[id number] Oral 1000 Other: Voiding Method Toilet Toilet Toilet # Voids 3 - Constitutional General appearance: Present: no acute distress - Gastrointestinal General gastrointestinal: Present: soft. Absent: distended, tenderness - Psychiatric Psychiatric: Present: A&O x's 3 - Labs CBC & Chem 7: 04/01/23 06:05 04/03/23 09:42 Labs: Abnormal Lab Results - Last 24 Hours (Table) 04/02/23 04/02/23 04/02/23 Range/Units 12:15 17:34 20:43 Sodium (137-145) mmol/L BUN (7-17) mg/dL Creatinine (0.52-1.04) mg/dL Glucose (74-99) mg/dL POC Glucose (mg/dL) 220 H 196 H 243 H (70-110) mg/dL Calcium (8.4-10.2) mg/dL 04/03/23 04/03/23 04/03/23 Range/Units 07:20 09:42 11:42 Sodium 135 L (137-145) mmol/L BUN 18 H (7-17) mg/dL Creatinine 1.10 H (0.52-1.04) mg/dL Glucose 229 H (74-99) mg/dL POC Glucose (mg/dL) 218 H 208 H (70-110) mg/dL Calcium 8.3 L (8.4-10.2) mg/dL Microbiology - Last 24 Hours (Table) 03/31/23 18:20 Blood Culture - Preliminary Blood 03/31/23 18:05 Blood Culture - Preliminary Blood 04/01/23 19:42 Urine Culture - Final Urine,Voided Assessment and Plan Assessment: 48-year-old female admitted to the hospital left-sided pyelonephritis. Reviewed the images no evidence of obstructing stone, or renal abscess. pain is improving . From Urology standpoint no acute surgical intervention, recommend continue antibiotics. urine culture showed no growth, but given the degree of stranding around the kidney recommend 14 days of antibiotics. she is okay for discharge from urology standpoint
[2023-04-03 17:06] LABS: Glucose,Whole Blood 180 mg/dL (70-110)
--- NOTE | 2023-04-03 17:34 | P.PN ---
Subjective Progress Note Date: 04/03/23 Principal diagnosis: Patient was admitted renal calculi nonobstructing, pyelonephritis, and gallstones 04/03/2023 This patient is currently having almost no pain IV antibiotics continue white count is back to normal, vital signs are stable patient is afebrile we will stop iv narcotics, will change patient to orals continue IV antibiotics we'll reevaluate tomorrow consider discharge home later tomorrow or Thursday Objective - Vital Signs Vital signs: Vital Signs Temp 98.2 F 04/03/23 11:49 Pulse 88 04/03/23 11:49 Resp 20 04/03/23 11:49 BP 138/88 04/03/23 11:49 Pulse Ox 97 04/03/23 11:49 FiO2 Intake & Output 04/02/23 04/03/23 04/03/23 18:59 06:59 18:59 Intake Total 950 1000 Balance 950 1000 Intake: Intake, IV Titration 950 Amount Dextrose 5% in Water 1, 900 000 ml @ 75 mls/hr IV . [id number] EMANUEL with Sodium Bicarb (1 Meq/ml) 150 ml Rx#:[id number] cefTRIAXone 1 gm In 50 Sodium Chloride 0.9% 50 ml @ 100 mls/hr IVPB Q24H EMANUEL Rx#:[id number] Oral 1000 Other: Voiding Method Toilet Toilet Toilet # Voids 3 - Exam General: [Patient awake, alert and oriented times 3. Patient in no acute distress.] HEENT: [PERRL. EOMI. No pharyngeal erythema or exudate.] Neck: [No adenopathy.] Cardiac: [Heart regular in rate and rhythm. No S3. No S4. No clicks, rubs. No murmur.] Lungs: [Clear to auscultation bilaterally.] Abdomen: [No mass. No organomegaly. Bowel sounds presnt and normoactive in all 4 quadrants.] Extremes: [No edema no cyanosis no claudication normal pulses] : Normal female genitalia Musculoskeletal: [No joint erythema, edema or tenderness.] Skin: [No rash.] Neurologic: [No lateralizing deficits. CN II - XII grossly intact.] Lymphatic: [No adenopathy.] - Labs CBC & Chem 7: 04/01/23 06:05 04/03/23 09:42 Labs: Abnormal Lab Results - Last 24 Hours (Table) 04/02/23 04/02/23 04/03/23 Range/Units 17:34 20:43 07:20 Sodium (137-145) mmol/L BUN (7-17) mg/dL Creatinine (0.52-1.04) mg/dL Glucose (74-99) mg/dL POC Glucose (mg/dL) 196 H 243 H 218 H (70-110) mg/dL Calcium (8.4-10.2) mg/dL 04/03/23 04/03/23 04/03/23 Range/Units 09:42 11:42 17:04 Sodium 135 L (137-145) mmol/L BUN 18 H (7-17) mg/dL Creatinine 1.10 H (0.52-1.04) mg/dL Glucose 229 H (74-99) mg/dL POC Glucose (mg/dL) 208 H 180 H (70-110) mg/dL Calcium 8.3 L (8.4-10.2) mg/dL Microbiology - Last 24 Hours (Table) 03/31/23 18:20 Blood Culture - Preliminary Blood 03/31/23 18:05 Blood Culture - Preliminary Blood 04/01/23 19:42 Urine Culture - Final Urine,Voided Assessment and Plan (1) TYLER (acute kidney injury) Current Visit: Yes Status: Acute Code(s): N17.9 - ACUTE KIDNEY FAILURE, UNSPECIFIED SNOMED Code(s): 07984116 (2) Abdominal pain Current Visit: Yes Status: Acute Code(s): R10.9 - UNSPECIFIED ABDOMINAL PAIN SNOMED Code(s): 66470633 (3) Leukocytosis Current Visit: Yes Status: Acute Code(s): D72.829 - ELEVATED WHITE BLOOD CELL COUNT, UNSPECIFIED SNOMED Code(s): 939902057 (4) Pyelonephritis Current Visit: Yes Status: Acute Code(s): N12 - TUBULO-INTERSTITIAL NEPHRITIS, NOT SPCF ACUTE OR CHRONIC SNOMED Code(s): 86981325 (5) Acute pulmonary edema Current Visit: No Status: Acute Code(s): J81.0 - ACUTE PULMONARY EDEMA SNOMED Code(s): 62594036 (6) Cellulitis of left breast Current Visit: No Status: Acute Code(s): N61.0 - MASTITIS WITHOUT ABSCESS SNOMED Code(s): 57441148 (7) Congestive heart failure Current Visit: No Status: Acute Code(s): I50.9 - HEART FAILURE, UNSPECIFIED SNOMED Code(s): 20024677 (8) Disruption of traumatic injury wound repair, initial encounter Current Visit: No Status: Acute Code(s): T81.33XA - DISRUPTION OF TRAUMATIC INJURY WOUND REPAIR, INIT ENCNTR SNOMED Code(s): 22808486 Plan: admit to the hospital Consultation with urology consultation with nephrology IV antibiotics Stop IV pain medicine, will change to orals Continue IV antibiotics We'll continue to follow closely, anticipate discharge home within the next 24- 48 Time with Patient: Greater than 30
[2023-04-03 18:54] VITALS: RESP 18
[2023-04-03 20:30] LABS: Glucose,Whole Blood 264 mg/dL (70-110)
[2023-04-03] MEDS ORDERED: ATORVASTATIN 10 MG TAB PO SCH (21:00)
[2023-04-03] MEDS: HYDROcodone/APAP 10-325MG 1 EACH TAB PO PRN (21:26)
[2023-04-03] MEDS: INSULIN DETEMIR (LEVEMIR) 100 UNIT/ML SYR SQ SCH (21:26)
--- NOTE | 2023-04-03 21:52 | P.PN ---
Subjective Patient is seen for f/u for TYLER and left pyelonephritis. Abdominal pain is better. Tolerating oral intake. 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 - Labs CBC & Chem 7: 04/01/23 06:05 04/03/23 09:42 Labs: Abnormal Lab Results - Last 24 Hours (Table) 04/03/23 04/03/23 04/03/23 Range/Units 07:20 09:42 11:42 Sodium 135 L (137-145) mmol/L BUN 18 H (7-17) mg/dL Creatinine 1.10 H (0.52-1.04) mg/dL Glucose 229 H (74-99) mg/dL POC Glucose (mg/dL) 218 H 208 H (70-110) mg/dL Calcium 8.3 L (8.4-10.2) mg/dL 04/03/23 04/03/23 Range/Units 17:04 20:17 Sodium (137-145) mmol/L BUN (7-17) mg/dL Creatinine (0.52-1.04) mg/dL Glucose (74-99) mg/dL POC Glucose (mg/dL) 180 H 264 H (70-110) mg/dL Calcium (8.4-10.2) mg/dL Microbiology - Last 24 Hours (Table) 03/31/23 18:20 Blood Culture - Preliminary Blood 03/31/23 18:05 Blood Culture - Preliminary Blood 04/01/23 19:42 Urine Culture - Final Urine,Voided Assessment and Plan Assessment: 1. Acute kidney injury ATN currently nonoliguric associated with underlying infection and hypoperfusion with low blood pressure. No obstruction noted on computed tomography scan. UA suggestive of UTI. 2. UTI with sepsis maintained on IV antibiotics. Possible recent passage of a stone however patient does not have any prior history of kidney stones. 3. Non-gap metabolic acidosis associated with acute kidney injury 4. Hypertension blood pressure is currently low 5. Type 2 diabetes maintained on insulin Plan: D/c IV bicarb Switch to LR Continue with empiric antibiotics Repeat labs in a.m.
[2023-04-03] MEDS ORDERED: LACTATED RINGERS 1,000 ML IV SCH (22:00)
[2023-04-03] MEDS ORDERED: bisacodyL 5 MG TABLET.DR PO PRN (22:23)
[2023-04-04 02:03] LABS: Basophils # (A) 0.04 X 10*3/uL (0.00-0.10); Basophils % (A) 0.5 %; Eosinophils # (A) 0.17 X 10*3/uL (0.04-0.35); Eosinophils % (A) 2.3 %; HCT 31.1 % (37.2-46.3); Lymphocytes # (A) 0.94 X 10*3/uL (0.90-5.00); Lymphocytes % (A) 12.5 %; MCH 28.2 pg (27.0-32.0); MCHC 32.2 d/dL (32.0-37.0); MCV 87.6 FL (80.0-97.0); Mean Platelet Volume 8.9 FL (9.5-12.2); Monocytes # (A) 0.56 X 10*3/uL (0.20-1.00); Monocytes % (A) 7.4 %; NRBC Per 100 WBC 0 X 10*3/uL (0.00-0.01); Neutrophils # (A) 5.79 X 10*3/uL (1.80-7.70); Neutrophils % (A) 76.9 %; Platelet Count 238 X 10*3/uL (140-440); RBC 3.55 X 10*6/uL (4.10-5.20); RDW 17.1 % (11.5-14.5); WBC 7.53 X 10*3/uL (4.50-10.00)
[2023-04-04] MEDS ORDERED: INSULIN DETEMIR (LEVEMIR) 100 UNIT/ML SYR SQ SCH (07:00)
[2023-04-04 07:35] LABS: Glucose,Whole Blood 145 mg/dL (70-110)
[2023-04-04] MEDS: INSULIN ASPART (NovoLOG) 100 UNIT/ML VIAL SQ SCH (07:47)
[2023-04-04 08:16] VITALS: TEMP 98.2
[2023-04-04] MEDS ORDERED: lisinopriL 10 MG TAB PO SCH (09:00)
[2023-04-04] MEDS ORDERED: NON FORMULARY DRUG (Sitagliptin 50 MG Tab) PO SCH (09:00)
[2023-04-04] MEDS ORDERED: DULoxetine HCL 30 MG CAPSULE.DR PO SCH (09:00)
[2023-04-04] MEDS: HYDROcodone/APAP 10-325MG 1 EACH TAB PO PRN (09:10)
[2023-04-04] MEDS: LINAGLIPTIN 5 MG TABLET PO SCH (09:10)
[2023-04-04 10:46] VITALS: BP 154/96; PULSE 87
--- NOTE | 2023-04-04 11:24 | P.DS ---
Providers Date of admission: 03/31/23 21:29 Expected date of discharge: 04/04/23 Attending physician: Bertram Sepulveda Consults: 03/31/23 17:31 Consult Physician Routine Consulting Provider: Franki Kelly Consult Reason/Comments: Pyelonephritis Do you want consulting provider notified?: Yes 04/01/23 06:03 Consult Physician Routine Consulting Provider: Fiorella Fonseca Consult Reason/Comments: Kidney Stones/Pyelonephritis Do you want consulting provider notified?: Yes, Notify in am Primary care physician: Bertram Sepulveda - Discharge Diagnosis(es) (1) TYLER (acute kidney injury) Current Visit: Yes Status: Acute (2) Abdominal pain Current Visit: Yes Status: Acute (3) Leukocytosis Current Visit: Yes Status: Acute (4) Pyelonephritis Current Visit: Yes Status: Acute (5) Acute pulmonary edema Current Visit: No Status: Acute (6) Cellulitis of left breast Current Visit: No Status: Acute (7) Congestive heart failure Current Visit: No Status: Acute (8) Disruption of traumatic injury wound repair, initial encounter Current Visit: No Status: Acute Patient Condition at Discharge: Good Plan - Discharge Summary Discharge Rx Participant: No New Discharge Prescriptions: New cefproziL [Cefzil] 500 mg PO Q12HR #30 tab HYDROcodone/APAP 7.5-325MG [Raymond 7.5-325] 1 tab PO Q4H PRN 3 Days #18 tab PRN Reason: Mild To Moderate Pain (1 - 6) No Action Simvastatin [Zocor] 20 mg PO HS lisinopriL [Zestril] 10 mg PO DAILY DULoxetine HCL [Cymbalta] 30 mg PO DAILY sitaGLIPtin [Januvia] 50 mg PO DAILY Insulin Glargine,Hum.rec.anlog [Lantus Solostar Pen] 20 unit SQ DAILY Discharge Medication List DULoxetine HCL [Cymbalta] 30 mg PO DAILY 10/06/21 [History] Insulin Glargine,Hum.rec.anlog [Lantus Solostar Pen] 20 unit SQ DAILY 10/06/21 [History] Simvastatin [Zocor] 20 mg PO HS 10/06/21 [History] lisinopriL [Zestril] 10 mg PO DAILY 10/06/21 [History] sitaGLIPtin [Januvia] 50 mg PO DAILY 03/31/23 [History] HYDROcodone/APAP 7.5-325MG [Raymond 7.5-325] 1 tab PO Q4H PRN 3 Days #18 tab 04/04/23 [Rx] cefproziL [Cefzil] 500 mg PO Q12HR #30 tab 04/04/23 [Rx] Follow up Appointment(s)/Referral(s): Bertram Sepulveda Jr, [Primary Care Provider] - 1-2 days
[2023-04-04 12:21] LABS: Glucose,Whole Blood 168 mg/dL (70-110)
--- NOTE | 2023-04-04 12:52 | P.PN ---
Subjective Patient is seen for f/u for TYLER and left pyelonephritis. Abdominal pain is better. Tolerating oral intake. Patient is being discharged. 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 - Labs CBC & Chem 7: 04/03/23 17:54 04/03/23 09:42 Labs: Abnormal Lab Results - Last 24 Hours (Table) 04/03/23 04/03/23 04/03/23 Range/Units 17:04 17:54 20:17 RBC 3.55 L (4.10-5.20) X 10*6/uL Hgb 10.0 L (12.0-15.0) d/dL Hct 31.1 L (37.2-46.3) % RDW 17.1 H (11.5-14.5) % MPV 8.9 L (9.5-12.2) FL POC Glucose (mg/dL) 180 H 264 H (70-110) mg/dL 04/04/23 04/04/23 Range/Units 07:34 12:20 RBC (4.10-5.20) X 10*6/uL Hgb (12.0-15.0) d/dL Hct (37.2-46.3) % RDW (11.5-14.5) % MPV (9.5-12.2) FL POC Glucose (mg/dL) 145 H 168 H (70-110) mg/dL Microbiology - Last 24 Hours (Table) 03/31/23 18:20 Blood Culture - Preliminary Blood 03/31/23 18:05 Blood Culture - Preliminary Blood Assessment and Plan Assessment: 1. Acute kidney injury ATN currently nonoliguric associated with underlying infection and hypoperfusion with low blood pressure. No obstruction noted on computed tomography scan. UA suggestive of UTI. 2. UTI with sepsis maintained on IV antibiotics. Possible recent passage of a stone however patient does not have any prior history of kidney stones. 3. Non-gap metabolic acidosis associated with acute kidney injury 4. Hypertension blood pressure is currently low 5. Type 2 diabetes maintained on insulin Plan: Follow-up with urology as outpatient Continue with antibiotics post discharge.
--- NOTE | 2023-04-06 15:57 | CDI ---
Documentation Clarification Form Date: 04/06/2023 03:33:51 PM From: Ermelinda Tate Phone: Admit Date: 03/31/2023 09:29:00 PM Patient Name: Ute Anaya Visit Number: [id number] Discharge Date: 04/04/2023 01:41:00 PM ATTENTION: The Clinical Documentation Specialists (CDI) and [facility] Coding Staff appreciate your assistance in clarifying documentation. Please respond to the clarification below the line at the bottom and electronically sign. The CDI & [facility] Coding staff will review the response and follow-up if needed. Please note: Queries are made part of the Legal Health Record. If you have any questions, please contact the author of this message via ITS. Dr. Bertram Sepulveda Your patient has the documented diagnosis of unspecified CHF per ED Note and Progress Notes. Additional information regarding the type and acuity of CHF is requested. History/Risk Factors: 48yo F, sepsis, ATN, pyelonephritis, disruptionoftraumaticinjurywound repair, DMII, cellulitisof Lt breast, CHF, metabolic acidosis, HTN Clinical Indicators: VS/Pulse OX: 96-97 Acute pulmonary edema Treatment: admit to the hospital, IV antibiotics, Stop IVpainmedicine, will change to orals; continue IV antibiotics In your professional opinion, can you please clarify the type and acuity of CHF if known? [ ] Acute Systolic Heart Failure (reduced EF) [ ] Chronic Systolic Heart Failure (reduced EF) [ ] Acute on Chronic Systolic Heart Failure (reduced EF) [ ] Acute Diastolic Heart Failure (preserved EF) [ ] Chronic Diastolic Heart Failure (preserved EF) [ ] Acute on Chronic Diastolic Heart Failure (preserved EF) [ ] Acute Systolic & Diastolic Heart Failure [ ] Chronic Systolic & Diastolic Heart Failure [ ] Acute on Chronic Heart Failure Systolic & Diastolic Heart Failure [ ] Other, please specify [ ] Unable to determine (Template Last Revised: August 2020) MTDD
== END 2023-04-04 13:41 | disposition home or self-care (01) | DRG 720 ==
LOC: EC 11:52 → 5NMEDONC 21:29
PROVIDERS: ADMIT Family Medicine; ATTEND Family Medicine
DX: A41.9 Sepsis, unspecified organism (principal); N17.0 Acute kidney failure with tubular necrosis; E11.40 Type 2 diabetes mellitus with diabetic neuropathy, unspecified; I11.0 Hypertensive heart disease with heart failure; Z68.42 Body mass index [BMI] 45.0-49.9, adult; J44.9 Chronic obstructive pulmonary disease, unspecified; Z79.4 Long term (current) use of insulin; T81.33XA Disruption of traumatic injury wound repair, initial encounter; E87.20 Acidosis, unspecified; N10 Acute pyelonephritis; E66.9 Obesity, unspecified; N39.0 Urinary tract infection, site not specified; N61.0 Mastitis without abscess; N20.0 Calculus of kidney; F17.210 Nicotine dependence, cigarettes, uncomplicated; M79.7 Fibromyalgia; Z79.899 Other long term (current) drug therapy; Z79.84 Long term (current) use of oral hypoglycemic drugs; Z79.85 Long-term (current) use of injectable non-insulin antidiabetic drugs; Z88.0 Allergy status to penicillin; Z88.5 Allergy status to narcotic agent; Z87.440 Personal history of urinary (tract) infections; Z87.442 Personal history of urinary calculi; I50.9 Heart failure, unspecified
CPT/HCPCS: 36415; 74177; 76705; 80048; 80053; 81001; 83605; 83690; 85025; 87040; 87086; 96361; 96365; 96366; 96367; 96375; 99285

== ENCOUNTER 2023-05-18 05:43 | Day surgery (SDC) | payer OTHER ==
[2023-05-15 11:11] VITALS: BMI 46.3
[~2023-05-18 05:43] MED LIST: ACETAMINOPHEN TAB 500 MG TAB PO PRN; HEPARIN SODIUM,PORCINE/PF 5,000 UNIT/0.5 ML SYRINGE SQ PRN; ceFAZolin 3 GM in SODIUM CHLORIDE 0.9% 100 ML IVPB PRN
[2023-05-18] MEDS ORDERED: HYDROmorphone 0.5 MG/0.5 ML SYRINGE IVP PRN (06:01)
[2023-05-18] MEDS ORDERED: droPERidol 5 MG/2 ML VIAL IVP ONE (06:01)
[2023-05-18] MEDS ORDERED: DEXAMETHASONE SOD PHOSPHATE 4 MG/ML 1 ML VIAL IV ONE (06:01)
[2023-05-18] MEDS ORDERED: LIDOCAINE 1% (10MG/ML) FOR IV START INTRADERMA PRN (06:01)
[2023-05-18] MEDS ORDERED: LACTATED RINGERS 1,000 ML IV SCH (06:01)
[2023-05-18] MEDS ORDERED: ONDANSETRON 4 MG/2 ML VIAL IVP PRN (06:01)
[2023-05-18] MEDS ORDERED: SCOPOLAMINE 1 MG/72 HR PATCH TRANSDERM ONE (06:01)
[2023-05-18 07:10] LABS: Glucose,Whole Blood 144 mg/dL (70-110)
[2023-05-18] MEDS ORDERED: PROPOFOL 10 MG/ML 20 ML VIAL IV ONE (07:25)
[2023-05-18] MEDS ORDERED: MIDAZOLAM 2 MG/2 ML VIAL ONE (07:25)
[2023-05-18] MEDS ORDERED: ROCURONIUM 10 MG/ML (5 ML VIAL) IV ONE (07:25)
[2023-05-18] MEDS ORDERED: SUCCINYLCHOLINE CHLORIDE 200 MG/10 ML VIAL IV ONE (07:25)
[2023-05-18] MEDS ORDERED: GLYCOPYRROLATE 0.2 MG/ML 2 ML VIAL ONE (07:25)
[2023-05-18] MEDS ORDERED: PHENYLEPHRINE-0.9% NACL SYG 1,000 MCG/10 ML SYRINGE ONE (07:25)
[2023-05-18] MEDS ORDERED: LIDOCAINE 1% INJ 10MG/ML (20 ML MDV) ONE (07:25)
[2023-05-18] MEDS ORDERED: NEOSTIGMINE 1 MG/ML 10 ML VIAL ONE (07:25)
[2023-05-18] MEDS ORDERED: fentaNYL (PF) 50 MCG/ML 2 ML AMP ONE (07:25)
[2023-05-18] MEDS ORDERED: KETOROLAC 15 MG/ML 1 ML VIAL ONE (07:25)
[2023-05-18 07:31] LABS: ALT 26 U/L (4-34); AST 37 U/L (14-36); African American GFR (CKD) 75 (>60 ml/min/1.73 sqM); Alkaline Phosphatase 99 U/L (38-126); Anion Gap 10 mmol/L; Blood Urea Nitrogen 19 mg/dL (7-17); Calcium 9.5 mg/dL (8.4-10.2); Carbon Dioxide 20 mmol/L (22-30); Chloride 107 mmol/L (98-107); Glucose 160 mg/dL (74-99); Non-African American GFR(CKD) 65 (>60 ml/min/1.73 sqM); Potassium 4.6 mmol/L (3.5-5.1); Sodium 137 mmol/L (137-145); Total Bilirubin 0.6 mg/dL (0.2-1.3); Total Protein 8.4 g/dL (6.3-8.2)
[2023-05-18] MEDS ORDERED: BUPIVACAINE (PF) 0.25% 30 ML VIAL SQ ONE (07:51)
--- NOTE | 2023-05-18 08:29 | P.OP ---
Date of Procedure: 05/18/23 Preoperative Diagnosis: Cholecystitis Postoperative Diagnosis: Cholecystitis Procedure(s) Performed: Laparoscopic cholecystectomy Anesthesia: SABRINA Surgeon: Ubaldo Dennison Estimated Blood Loss (ml): 5 Pathology: other (Gallbladder) Condition: stable Disposition: PACU Description of Procedure: The patient was placed on the operating table. The patient received a general endotracheal tube anesthesia. The patients abdomen was prepped and draped in the usual sterile fashion. Through an infraumbilical stab incision, the fascia of the anterior abdominal wall was grasped with a pair of Kochers and then the Veress needle was placed in the peritoneal cavity. Position of the Veress needle was confirmed with positive drop test. The abdomen was then insufflated. After adequate insufflation, the 10 mm trocar was placed in the peritoneal cavity. Following this the laparoscope was placed in the peritoneal cavity. The patient was placed in the head-up, right side up position and then a 5 mm trocar was placed in the right lateral and right subcostal position under direct visualization. A 8 mm trocar was placed in the epigastric position. The gallbladder was grasped in the fundus and infundibulum. Traction on the gallbladder was placed in the lateral and the cephalad positions. The triangle of Calot was visualized.. The cystic duct was bluntly dissected until the union of the cystic duct and common bile duct was seen. A critical view of safety was achieved. The cystic duct was then divided and sealed with the Harmonic scissors. A PDS Endoloop was then placed throughout the cystic duct stump. The cystic artery divided and sealed with the Harmonic scissors. The gallbladder was then removed from the liver bed using Harmonic scissors. The gallbladder was then extracted through the epigastric port site. Operative field was checked for any bleeding spots and Harmonic scissors was used to coagulate the liver bed. The abdomen was irrigated. The trocars were removed. The skin was closed using interrupted 3-0 Vicryl suture. Dermabond dressing were applied. The patient tolerated the procedure well.
[2023-05-18 09:05] LABS: Glucose,Whole Blood 170 mg/dL (70-110)
[2023-05-18 09:06] VITALS: TEMP 96.8
[2023-05-18] MEDS ORDERED: NITROGLYCERIN SL TABS 0.4 MG TAB SUBLINGUAL ONE ×4 (10:01→10:47)
[2023-05-18] MEDS ORDERED: ASPIRIN 325 MG TAB PO STA (10:07)
[2023-05-18] MEDS ORDERED: CITRIC ACID-SODIUM CITRATE 15 ML CUP PO STA (10:08)
[2023-05-18] MEDS ORDERED: ASPIRIN 325 MG TAB PO ONE (10:19)
--- NOTE | 2023-05-18 11:02 | P.CRDCN ---
History of Present Illness Consult date: 05/18/23 Reason for Consult (text): Chest pain Consult reason: chest pain History of present illness: History of present illness: This is a 48 year old female patient with past medical history of hypertension, diabetes mellitus type 2, morbid obesity. We have been asked to evaluate the patient for chest pain. Patient was brought into the hospital under the care of Dr. Dennison status post laparoscopic cholecystectomy. Patient is seen today in the postop unit. Following surgery, patient developed midsternal chest pain which she has never had before. She thought it was sharp and cramping. She also complains of a headache and wheezing. No cough, no fever or chills, no chest pain, no lightheadedness or dizziness, no shortness of breath. Patient was previously seen by Dr. Mauricio in 2018. It was just at that time the patient undergo dobutamine stress echo the patient had cellulitis of her breast and she did not follow-up. EKG sinus rhythm with no acute ST changes Electrolytes unremarkable. BUN 20 creatinine 1.1. Blood sugar 214. Troponin negative 1. Home cardiac medications: Lisinopril 10 mg daily, simvastatin 20 mg at bedtime Echocardiogram 2018 EF 55-60%. No evidence of pulmonary hypertension. Review Of Systems: At the time of my evaluation: Constitutional: No fever, no chills. No weakness, fatigue or lethargy. EENT: No headache. No dizziness. Lungs: No shortness of breath, cough, no sputum production. No wheezing. Cardiovascular: No chest pain, no lower extremity edema. No palpitations. No paroxysmal nocturnal dyspnea. No orthopnea. No lightheadedness or dizziness. No syncopal episodes. Abdominal: No abdominal pain. No nausea, vomiting. No diarrhea. No constipation. No bloody or tarry stools. Genitourinary: No dysuria. Musculoskeletal: No myalgias. No muscle weakness, no frequent falls. Integumentary: No wounds. No rash. No unusual bruising. Neurologic: No aphasia. No facial droop. No change in mentation. Physical examination: Gen: This is a morbidly obese 48-year-old female. She is resting on the stretcher and appears to be comfortable and in no acute distress. VS: reviewed HEENT: Head is atraumatic, normocephalic. Pupils equal, round. Sclerae is anicteric. NECK: Supple. No JVD. LUNGS: Clear to auscultation. No wheezes or rhonchi. No intercostal retractions. HEART: Regular rate and rhythm. No murmur. ABDOMEN: Soft No tenderness. EXTREMITIES: No pedal edema. No calf tenderness. NEUROLOGICAL: Patient is awake, alert and oriented x3. Assessment: Chest pain, atypical Hypertension Diabetes mellitus type 2 Morbid obesity Cholecystitis Plan: Obtain troponin 2 If troponins are negative, patient is cleared for discharge home today. Patient may follow up with Dr. Rawls in 2-3 weeks. Further recommendations to follow based upon clinical course Thank you kindly for this consultation. Nurse practitioner note has been reviewed, I agree with documented findings and plan of care. Patient was seen and examined. Past Medical History Past Medical History: Heart Failure, COPD, Diabetes Mellitus, Fibromyalgia, Hypertension, Musculoskeletal Disorder, Skin Disorder, Sleep Apnea/CPAP/BIPAP Additional Past Medical History / Comment(s): gallstones,pyelonephritis left kiney admission , migraines, diabetic neuropathy,eczema,does not use cpap History of Any Multi-Drug Resistant Organisms: None Reported Past Surgical History: Orthopedic Surgery Additional Past Surgical History / Comment(s): Bilateral knees arthroscopies, R achilles tendon injury with surgical repair, tubal ligation Additional Past Anesthesia/Blood Transfusion Reaction / Comment(s): Pt states sometimes she is slow to wake. Pt has never received blood. Past Psychological History: Depression Additional Psychological History / Comment(s): Pt resides with her 2 sons ages 16 and 22 yrs and her nephew age 16 yrs and her exspouse. She drives. Smoking Status: Current every day smoker, Vaper Past Alcohol Use History: None Reported Additional Past Alcohol Use History / Comment(s): currently vapes, Pt started smoking in 1992 and was a ppd smoker. Past Drug Use History: None Reported - Past Family History Father History Unknown: Yes Mother Family Medical History: Cancer, Diabetes Mellitus Additional Family Medical History / Comment(s): Mother from breast cancer that metastasized to her brain at the age of 73 yrs. Medications and Allergies Home Medications Medication Instructions Recorded Confirmed Type DULoxetine HCL [Cymbalta] 30 mg PO QAM 10/06/21 05/15/23 History Insulin Glargine,Hum.rec.anlog 20 unit SQ QAM 10/06/21 05/15/23 History [Lantus Solostar Pen] Simvastatin [Zocor] 20 mg PO HS 10/06/21 05/15/23 History lisinopriL [Zestril] 10 mg PO QAM 10/06/21 05/15/23 History sitaGLIPtin [Januvia] 50 mg PO DAILY 03/31/23 05/15/23 History HYDROcodone/APAP 7.5-325MG [Venus 1 tab PO Q4H PRN 3 Days #18 tab 04/04/23 05/15/23 Rx 7.5-325] Acetaminophen Tab [Tylenol] 650 mg PO Q6H #30 tab 05/18/23 Rx Docusate [Colace] 100 mg PO BID #20 capsule 05/18/23 Rx Ibuprofen [Motrin] 600 mg PO Q6HR PRN #40 tab 05/18/23 Rx oxyCODONE HCL [OxyIR] 5 mg PO Q6H PRN 3 Days #10 tab 05/18/23 Rx Allergies Allergy/AdvReac Type Severity Reaction Status Date / Time amoxicillin AdvReac Itching Verified 05/15/23 10:42 clavulanic acid AdvReac welts Verified 05/15/23 10:42 [From Augmentin] hydrocodone bitartrate AdvReac Itching Verified 05/15/23 10:42 [From Vicodin] Physical Exam Vitals: Vital Signs Temp Pulse Pulse Resp BP BP Pulse Ox 05/18/23 10:35 60 18 147/81 98 05/18/23 10:20 73 18 103/66 94 L 05/18/23 10:16 77 16 118/71 93 L 05/18/23 10:10 92 16 117/70 94 L 05/18/23 10:06 92 20 156/73 94 L 05/18/23 09:51 61 16 134/79 99 05/18/23 09:38 65 16 136/89 97 05/18/23 09:23 70 14 133/83 97 05/18/23 09:18 72 16 137/74 99 05/18/23 08:53 73 16 133/77 100 05/18/23 08:38 96.8 F L 62 14 143/98 97 05/18/23 07:00 97 F L 93 20 141/86 97 Intake and Output 05/17/23 05/18/23 05/18/23 22:59 06:59 14:59 Intake Total 850 Output Total 5 Balance 845 Intake: IV 850 Output: Estimated Blood Loss 5 Other: Weight 126.3 kg 126.3 kg Results 05/18/23 10:44 Cardiac Enzymes 05/18/23 Range/Units 07:10 AST 37 H (14-36) U/L Comprehensive Metabolic Panel 05/18/23 Range/Units 07:10 Sodium 137 (137-145) mmol/L Potassium 4.6 (3.5-5.1) mmol/L Chloride 107 (98-107) mmol/L Carbon Dioxide 20 L (22-30) mmol/L BUN 19 H (7-17) mg/dL Creatinine 1.02 (0.52-1.04) mg/dL Glucose 160 H (74-99) mg/dL Calcium 9.5 (8.4-10.2) mg/dL AST 37 H (14-36) U/L ALT 26 (4-34) U/L Alkaline Phosphatase 99 (38-126) U/L Total Protein 8.4 H (6.3-8.2) g/dL Albumin 4.0 (3.5-5.0) g/dL Current Medications Generic Name Dose Route Start Last Admin Trade Name Freq PRN Reason Stop Dose Admin Hydromorphone HCl 0.5 mg 05/18/23 06:01 Hydromorphone 0.5 Mg/0.5 Ml Syringe IVP 05/19/23 06:02 Q5M PRN Phase 1 or 2 - Pain Control Lactated Ringer's 1,000 mls @ 20 mls/hr 05/18/23 06:01 05/18/23 07:15 Lactated Ringers IV 06/17/23 06:02 750 mls .Q24H EMANUEL Administration Lidocaine HCl 0.1 ml 05/18/23 06:01 Lidocaine 1% (10mg/Ml) For Iv Start INTRADERMA 06/17/23 06:02 PER PROTOCOL PRN IV Start Intake and Output 05/17/23 05/18/23 05/18/23 22:59 06:59 14:59 Intake Total 850 Output Total 5 Balance 845 Intake: IV 850 Output: Estimated Blood Loss 5 Other: Weight 126.3 kg 126.3 kg Patient Weight 05/19/23 06:59 Weight 126.3 kg 05/18/23 07:10
[2023-05-18 11:22] LABS: African American GFR (CKD) 67 (>60 ml/min/1.73 sqM); Anion Gap 9 mmol/L; Blood Urea Nitrogen 20 mg/dL (7-17); Carbon Dioxide 21 mmol/L (22-30); Chloride 107 mmol/L (98-107); Glucose 214 mg/dL (74-99); Non-African American GFR(CKD) 58 (>60 ml/min/1.73 sqM); Potassium 5.1 mmol/L (3.5-5.1); Sodium 137 mmol/L (137-145)
[2023-05-18 11:38] LABS: Glucose,Whole Blood 214 mg/dL (70-110)
[2023-05-18] MEDS ORDERED: INSULIN ASPART (NovoLOG) 100 UNIT/ML VIAL SQ ONE ×2 (11:38→11:50)
[2023-05-18] MEDS ORDERED: LACTATED RINGERS 1,000 ML IV ONE (13:20)
[2023-05-18 14:48] VITALS: BP 140/84; PULSE 63; RESP 16
== END 2023-05-18 15:10 | disposition home or self-care (01) ==
LOC: OR 05:43
PROVIDERS: ATTEND Surgery
DX: K80.10 Calculus of gallbladder with chronic cholecystitis without obstruction (principal); E11.9 Type 2 diabetes mellitus without complications; J44.9 Chronic obstructive pulmonary disease, unspecified; I10 Essential (primary) hypertension; F32.A Depression, unspecified; K42.9 Umbilical hernia without obstruction or gangrene; F17.210 Nicotine dependence, cigarettes, uncomplicated; E66.01 Morbid (severe) obesity due to excess calories; Z98.890 Other specified postprocedural states; Z88.5 Allergy status to narcotic agent; Z88.8 Allergy status to other drugs, medicaments and biological substances; Z79.84 Long term (current) use of oral hypoglycemic drugs; Z79.4 Long term (current) use of insulin; Z79.899 Other long term (current) drug therapy
CPT/HCPCS: 47562; 80053; 80048; 84484; J2250; J0330; J1100; J2710; J0690; J2405; J2001; J3010; J1885; J2704; J1644; J2371; J0665; 88304

== ENCOUNTER → 2023-06-03 | Outpatient (CLI) | payer OTHER ==
[2023-06-03 21:25] LABS: Basophils # (A) 0.05 X 10*3/uL (0.00-0.10); Basophils % (A) 0.6 %; Eosinophils # (A) 0.23 X 10*3/uL (0.04-0.35); Eosinophils % (A) 2.6 %; HGB 12.2 g/dL (12.0-15.0); Lymphocytes # (A) 1.55 X 10*3/uL (0.90-5.00); Lymphocytes % (A) 17.3 %; MCH 28.4 pg (27.0-32.0); MCHC 32.1 g/dL (32.0-37.0); MCV 88.6 FL (80.0-97.0); Mean Platelet Volume 9.2 FL (9.5-12.2); Monocytes # (A) 0.46 X 10*3/uL (0.20-1.00); Monocytes % (A) 5.1 %; NRBC Per 100 WBC 0 X 10*3/uL (0.00-0.01); Neutrophils # (A) 6.61 X 10*3/uL (1.80-7.70); Platelet Count 228 X 10*3/uL (140-440); RBC 4.29 X 10*6/uL (4.10-5.20); RDW 14.8 % (11.5-14.5); WBC 8.94 X 10*3/uL (4.50-10.00)
== END | disposition home or self-care (01) ==
LOC: LABPAT 13:55
PROVIDERS: ATTEND Surgery
DX: Z01.812 Encounter for preprocedural laboratory examination (principal); K42.9 Umbilical hernia without obstruction or gangrene
CPT/HCPCS: 85025; 86850; 86900; 86901